=== PATIENT | female | born 1945 | race Caucasian/White ===

== ENCOUNTER 2017-01-23 11:55 | Emergency (ER) | payer MEDICARE, OTHER ==
[~2017-01-23] VITALS: Ht 162.6 cm; Wt 63.5 kg
[2017-01-23] MEDS ORDERED: OXYBUTYNIN CHLO15 MG PO (12:35)
[2017-01-23] MEDS ORDERED: ZANAFLEX4 MG PO (12:36)
[2017-01-23] MEDS ORDERED: TOLTERODINE TART4 MG PO (12:36)
[2017-01-23] MEDS ORDERED: PANTOPRAZOLE SO40 MG PO (14:04)
--- NOTE | 2017-01-24 13:02 | EKG ---
[facility] [address] [facility] [place] [address] Signed Sinus tachycardia with premature atrial complexes Cannot rule out Anterior infarct , age undetermined Abnormal ECG No previous ECGs available Confirmed by NILA ZUNIGA MD ([id number]) on 01/24/2017 1:01:52 PM Electronically Signed By: NILA ZUNIGA MD 01/24/17 1302 PATIENT NAME: PAMELAMONIKA ONEIDA Electrocardiogram DATE OF : 47 PHYSICIAN: NILA ZUNIGA MD REPORT #: [id number] REPORT IS CONFIDENTIAL AND NOT TO BE RELEASED WITHOUT AUTHORIZATION
== END 2017-01-23 16:12 | disposition home or self-care (01) ==
LOC: ED 11:55
DX: R13.10 Dysphagia, unspecified (principal); R03.0 Elevated blood-pressure reading, without diagnosis of hypertension; R61 Generalized hyperhidrosis; R00.0 Tachycardia, unspecified; I49.1 Atrial premature depolarization; G35 Multiple sclerosis; Z79.899 Other long term (current) drug therapy
CPT/HCPCS: 71010; 80053; 83735; 84484; 85025; 85610; 85730; 93005; 93010; 96361; 96374; 96375; 99283; J1610; J2060; J2270; J2405; J7030

== ENCOUNTER 2017-01-24 11:57 | Inpatient (IN) | payer MEDICARE, OTHER ==
[~2017-01-24] VITALS: Ht 162.6 cm; Wt 64.2 kg
[~2017-01-24 11:57] MED LIST: OXYBUTYNIN CHLO15 MG PO; PANTOPRAZOLE SO40 MG PO; TOLTERODINE TART4 MG PO; ZANAFLEX4 MG PO
--- NOTE | 2017-01-24 16:55 | NUR ---
PATIENT ADMITTED TO MED SURG. PATIENT IS A 2 PERSON ASSIST TO COMMODE. PATIENT ENDORSES NEEDING TO VOID EVERY ONE HOUR AT HOME HER BASELINE. D5LR @ 75 ML/HOUR. PATIENT REPORTS NO PAIN IN THROAT AT THIS TIME, ONLY WHEN ATTEMPTING TO SWALLOW.
--- NOTE | 2017-01-24 17:59 | NUR ---
PATIENT CAME TO THE FLOOR AROUND 1630 FROM ER. PATIENT HAS NO COMPLAINTS OF PAIN. ELEVATED BP NOTED AND TRANSDERMAL NITRO WAS ADMINISTERED WITH NO CHANGE IN BP. ALL OTHER VITAL SIGNS STABLE. PATIENT HAS NOT EATEN SINCE WEDNESDAY AND HAS DENIED NUTRITION. NO COMPLAINTS OF NAUSEA OR VOMITING. INTENTIONAL ROUNDING DONE WITH PATIENT'S NEEDS MET.
--- NOTE | 2017-01-24 18:42 | NUR ---
PATIENT IS RESTING IN BED WATCHING TV. HAS NO NEEDS AT THIS TIME.
--- NOTE | 2017-01-24 20:45 | NUR ---
PT AWAKE AND VISITING WITH HER . KENDALL OFFERS NO COMPLAINTS, BUT PT AND STATED THAT SHE JUST NEEDS TO BE CHANGED, NOT PUT ON THE COMMODE SHE COULD SIT ON THE COMMODE FOR LONG TIME IT TAKES HER LONG TIME TO URINATE.
--- NOTE | 2017-01-24 21:30 | NUR ---
PT REFUSED THE OXYBUTIN MEDICATION, STATING THAT SINCE SHE IS GETTING IV FLUIDS, IT SEEMS POINTLESS TO TAKE THE MEDICATION. PT SLEEPS WITH HER SHOES PER CHOICE.
--- NOTE | 2017-01-24 22:57 | NUR ---
PATIENT DID ORAL CARE.
--- NOTE | 2017-01-24 23:41 | NUR ---
PT REQUESTED TIZANIDINE, STATES SHE HAS NO DISCOMFORT WHEN SWALLOWING WATER FOR HER PILL
--- NOTE | 2017-01-25 01:24 | NUR ---
PT WITH EYES CLOSED, RESP EVEN AND UNLABORED. IV INFUSING PER ORDER.
--- NOTE | 2017-01-25 06:36 | NUR ---
PT HAD NO COMPLAINTS THIS SHIFT. INCONT CARE PROVIDED EVERY 1-2 HOURS. IV CONTINUES INFUSING. PT HAS HAD NO COMPLAINTS OF PAIN WHEN SWALLOWING. STATES THE PAIN IS GONE.
--- NOTE | 2017-01-25 07:46 | NUR ---
pt lying in bed this morning. reports bladder pains. will continue to monitor today. no other complaints at this time. bedside report received from Alvina MAIN.
--- NOTE | 2017-01-25 07:50 | NUR ---
Patient sittng up in bed. hands and face washed. oral care done. talked to her about a bed bath after swollow study. call button in reach. no other needs at this time.
--- NOTE | 2017-01-25 10:09 | NUR ---
pt BP elevated. checked x2. MD aware. will recheck at 1100. pt reports pain in throat returning. called. Expecting new orders soon.
--- NOTE | 2017-01-25 11:30 | NUR ---
DR. huang with patient. Talked to nurse about assisting patient with a bed bath once her pain is in more controll.
[2017-01-25] MEDS ORDERED: OXYBUTYNIN CHLO10 MG PO (11:43)
[2017-01-25] MEDS ORDERED: NALTREXONE PO (11:48)
[2017-01-25] MEDS ORDERED: VITAMIN D1000 UNI1 PO (11:52)
[2017-01-25] MEDS ORDERED: ALENDRONATE SOD70 MG PO (11:55)
--- NOTE | 2017-01-25 12:03 | NUR ---
REVIEWED MEDICATION LIST WITH PATIENT AND . ADDED ALENDRONATE TO MEDICATION LIST PATIENT TAKES THIS WEEKLY, LAST DOSE WAS 01/17, DID NOT TAKE ON 01/24 BECAUSE OF ESOPHAGEAL PAIN.
--- NOTE | 2017-01-25 12:43 | NUR ---
patient with 100ml of emesis. spouse reports reduction in epigastric pain after vomiting.
--- NOTE | 2017-01-25 13:12 | NUR ---
PATIENT AND HAVE HAD BOUTS OF ANXIETY. HAS APPROACHED NURSES STATION MULTIPLE TIMES FOR VARIOUS CONCERNS. DR ZUNIGA AWARE. PT HAVING BOUTS OF NAUSEA.
--- NOTE | 2017-01-25 13:38 | NUR ---
PT OFF FLOOR WITH CARLA FROM IMAGINING IN PT BED AT [id number]
--- NOTE | 2017-01-25 17:16 | NUR ---
PT HAD EVENTFUL DAY. ESOPHAGEAL SPASMS CAME BACK THIS MORNING. NITRO PASTE AND NITRO SL X2 EACH. MORPHINE X2. CARDIZEM PO THIS AFTERNOON. UNABLE TO GET GOOD RESULT FROM ESOPHOGRAM. PLAN FOR LIAM CONSULT AND EGD TOMORROW. CAN BE VERY ANXIOUS AND APPROACH NURSES DESK MULTIPLE TIMES DURING STRESSFUL TIMES FOR PATIENTS NEEDS FOR RELIEF. 2PA FWW. PHYSICAL THERAPY ORDERED. INCONTINENT. CHANGE ATTEND FREQUENTLY.
--- NOTE | 2017-01-25 19:35 | NUR ---
PT CONT. TO C/O NAUSEA. ZOFRAN GIVEN EARLIER NOT MUCH RELIEF. PHENERGAN 12.5MG IV GIVEN SLOWLY. REPOSITIONED. AT BEDSIDE.
--- NOTE | 2017-01-25 20:11 | NUR ---
PT REPORTS NAUSEA IS MUCH BETTER. STATES SHE IS COMFORTABLE. RESTING QUIETLY WITH EYES CLOSED. CALL LIGHT IN EASY REACH.
--- NOTE | 2017-01-25 22:00 | NUR ---
WOKE AFTER NAP AND STATES SHE IS "FEELING" BETTER, DENIES ESOPHAGEL PAIN. NO NAUSEA, SAT UP FOR HS CARES, LINENS CHANGED . POSITIONED FOR COMFORT. WATCHING TV.
--- NOTE | 2017-01-26 01:53 | NUR ---
ALMA VICTORIA FOR [facility], REPOSITIONED FOR COMFORT. CALL LIGHT IN EASY REACH.
--- NOTE | 2017-01-26 05:07 | NUR ---
PT STATES SHE SLEPT WELL TONIGHT. NPO SINCE [place] FOR EGD TODAY. IVF PATENT. INC CARE Q 2HOURS. NO NAUSEA SINCE PHENERGAN AT BEGINNING OF SHIFT. NO ESOPHAGEAL SPASMS THIS SHIFT.
--- NOTE | 2017-01-26 07:34 | NUR ---
Bedside report received from Sarita MAIN. Pt sleeping at this time. Oxycodone seems to be managing pain better. Patient up to bathroom independently with FWW. Left ankle Dyer dressing in place. Dr Rodriguez in seeing patient now.
--- NOTE | 2017-01-26 08:15 | NUR ---
FULL BED BATH DONE WITH SORAYA,ORAL, AND SKIN CARE. LINENS CHANGED. SHAMPOO CAP FOR HAIR. NO OTHER NEEDS AT THIS TIME. POSITIONED PATIENT ON RIGHT SIDE.
[2017-01-26] MEDS ORDERED: VALIUM5 MG PO (09:12)
--- NOTE | 2017-01-26 09:24 | NUR ---
PT. IS RESTING IN BED SPEAKING WITH . MORNING MEDICATIONS GIVEN AND ASSESSMENT DONE. PATIENT HAS NO NEEDS AT THIS TIME.
--- NOTE | 2017-01-26 09:57 | NUR ---
PRE OP CHECKLIST VERIFIED DONE. PHYS. THER IN TO WORK IWHT PT. IN ROOM.
--- NOTE | 2017-01-26 10:00 | NUR ---
PHYSICAL THERAPY IN TO ASSESS WALKING FUNCTION OF PT. PT. REQUIRES SIGNIFICANT ASSISTANCE STANDING AND WALKING. DEPEND CHANGED AFTER PT. WAS PUT BACK IN BED AND HAS NO OTHER NEEDS AT THIS TIME.
--- NOTE | 2017-01-26 11:12 | NUR ---
PT OFF FLOOR WITH RN KRUPA FROM SURGERY FOR EGD.
--- NOTE | 2017-01-26 11:46 | NUR ---
01/26/17 1146 Tanja Vaughan PT HAS AN IV IN RIGHT WRIST, CDI AND WLN ON ARRIVAL TO PACU
--- NOTE | 2017-01-26 12:08 | NUR ---
PATIENT BACK TO FLOOR FROM DAY SURGERY. RECEIVED REPORT FROM TERESA. PATIENT DENIES PAIN OR NAUSEA.
--- NOTE | 2017-01-26 13:02 | NUR ---
PATIENT IS RESTING IN BED WATCHING TV. UPDATED PATIENT ON PLAN OF CARE AND SHE WAS AGREABLE. PATIENT HAS NO NEEDS AT THIS TIME.
--- NOTE | 2017-01-26 13:44 | NUR ---
PATIENT SITTING UP IN BED. TURNED ONTO LEFT SIDE. WAITING ON A CLEAR LIQ TRAY. CALL BUTTON IN REACH. FRESH WATER GIVEN. NO OTHER NEEDS AT THIS TIME.
--- NOTE | 2017-01-26 14:09 | NUR ---
PATIENT IS RESTING IN BED WATCHING TV. DINNER AT BEDSIDE. MAALOX ADMINISTERED. PATIENT HAS NO NEEDS AT THIS TIME.
--- NOTE | 2017-01-26 16:00 | NUR ---
PATIENT IS RESTING IN BED WATCHING TV. PATIENT HAS NO NEEDS AT THIS TIME.
--- NOTE | 2017-01-26 16:20 | CONS ---
[facility] [address] [place], [place] [address] Signed DATE OF SERVICE: 01/25/2017 REFERRING PHYSICIAN: Dr. Aspen Porter CHIEF COMPLAINT: Painful swallowing. HISTORY OF PRESENT ILLNESS: Monika is a 71-year-old female with a long history of multiple sclerosis. Both her parents had it and all six of the children have it. She lives with her at home and she is able to stand and take small steps. She can sit on the toilet, but she cannot stand long enough to take a shower and so forth. Her MS doctor is Dr. Bunny Stoll in [place], [place] . She has been doing generally fine except the last couple of weeks, she has had painful swallowing. She eats whatever her cooks and she is able to chew the food and swallow, but it has been painful. She came into the emergency room, was given some glucagon, seemed to be better, and was all o wed to go home, but with resumed eating, the pain came back, so she returned to the hospital and was admitted to the Internal Medicine Service. They attempted to do a barium swallow yesterday, which was difficult because she is not able to stay under sit upright for any length of time and it was not particularly helpful. There is some concern that she does not swallow well on the barium swallow. The esophagus is said to be a little patulous, no peristalsis. They thought the distal third of the esophagus was a bit corkscrewed and it did not seem like the barium went through the GE junction. However, the distal esophagus was very difficult to evaluate, and once again, the patient complained of this chest pain, which has been present at least 2 weeks and so th e procedure had to be aborted. Consequently, I was asked to see her general surgeon manager distribution for consideration of upper endoscopy. PAST MEDICAL HISTORY: Multiple sclerosis and urinary urgency. PAST SURGICAL HISTORY: Right ankle surgery in 2005 with metal remaining. Left lower extremity varicose vein stripping. SOCIAL HISTORY: She does not smoke or drink. She is and has [address] Hayes Hendrickson is her primary care provider. Dr. Bunny Stoll is her MS doctor in [place], [place]. Her is Dario at [phone]. They live together at her home. She is able to stand and take small steps and sit on the toilet. Of course, she cannot drive. They prefer the [facility]. FAMILY HISTORY: Mom, dad, and all her siblings have multiple sclerosis. REVIEW OF SYSTEMS: We reviewed 10 systems and most of what I got from the electronic health records, but Electronically Signed By: ALLEGRA WHEELER MD 01/26/17 5820 PATIENT NAME: MONIKA SANTIAGORAINE CONSULTATION DATE OF : 47 PHYSICIAN: ALLEGRA WHEELER MD REPORT #: [id number] REPORT IS CONFIDENTIAL AND NOT TO BE RELEASED WITHOUT AUTHORIZATION [address] [address] Signed also from Monika. Nothing new to add. ALLERGIES: None. MEDICATIONS: Ocrelizumab, oxybutynin, tizanidine, tolterodine, and Protonix. PHYSICAL EXAMINATION: VITAL SIGNS: Blood pressure is 143/71, heart rate , respiratory rate 18, temperature is 98.3, and she is 98% on room air. She is 5 feet 4 inches, weight 76 kg. GENERAL: Monika is a 71-year-old female who generally appears her stated age. It is clear in interacting with her but she has MS. She is lying supine in her hospital bed. However, she is very bright and answers appropriately. LUNGS: Clear to auscultation. HEART: Regular rate and rhythm. ABDOMEN: Soft, flat, and nontender. LABORATORY DATA: Her white blood count 11.3, hemoglobin 13, neutrophils 71, and platelets 297. BUN 7, creatinine 0.7, albumin 4.1, and INR 0.9. RADIOGRAPHIC STUDIES: A chest x-ray done was unremarkable. The barium swallow showed possible corkscrewing in the distal esophagus without peristalsis. ASSESSMENT AND PLAN: Monika is a 71-year-old female who certainly has multiple scleroses now with what looks like odynophagia. However, she could have some dysphagia as well, though she has denied that up until 2 weeks ago. At this point, I have been asked to do her upper endoscopy and we can certainly do that later today or possibly tomorrow. We will need an anesthesia provider to help us because of her significant multiple sclerosis and airway control. In the end, I did introduce to h e r the concept of a feeding tube that may or may not be necessary at some point, either now or in the future. She has already been through a colonoscopy in the past and so she is familiar with endoscopy. We did review that together and she understands the risks and benefits and would like to proceed. We will make those arrangements and go from there. MD STEVEN Dickerson/Johnnie Electronically Signed By: ALLEGRA WHEELER MD 01/26/17 1620 PATIENT NAME: MONIKA SANTIAGO CONSULTATION DATE OF : 47 PHYSICIAN: ALLEGRA WHEELER MD REPORT #: [id number] REPORT IS CONFIDENTIAL AND NOT TO BE RELEASED WITHOUT AUTHORIZATION [address] [address] Signed /[id number] cc: Hayes Wheeler MD Electronically Signed By: ALLEGRA WHEELER MD 01/26/17 1620 PATIENT NAME: MONIKA SANTIAGO CONSULTATION DATE OF : 47 PHYSICIAN: ALLEGRA WHEELER MD REPORT #: [id number] REPORT IS CONFIDENTIAL AND NOT TO BE RELEASED WITHOUT AUTHORIZATION
--- NOTE | 2017-01-26 16:20 | OR ---
[facility] [address] [place], [place] [address] Signed DATE OF PROCEDURE: 01/26/17 PREOPERATIVE DIAGNOSES Distal odynophagia. Multiple sclerosis. POSTOPERATIVE DIAGNOSES Moderate sized type 1 hiatal hernia. Severe distal esophagitis. PROCEDURES EGD with CLOtest and biopsies of the antrum and GE junction. ESTIMATED BLOOD LOSS: Minimal. INDICATIONS Monika is a 71-year-old female who unfortunately developed multiple sclerosis in her late 40s. Both her parents and all her siblings have multiple sclerosis at this point. She can stand and take small steps, but otherwise is in bed. She said she is able to sit on the toilet if necessary. In the last couple of weeks, she has had severe distal odynophagia. She has been on Protonix at home. She came to emergency room, seemed to be okay with this sense of fullness in her esophagus, but came back the next day because the symptoms persisted. She was admitted to the Internal Medicine Service. I was asked to see her as a general surgeon cyber incident responder for consideration of upper endoscopy. In the meantime, she had chest x-ray done which was unremarkable. She had a barium swallow performed with just 4 small sips of the barium and it looked like there might be some corkscrewing to the distal esophagus. She did not seem to have much of anything as far as peristalsis. The little bit of contrast kind of collected down around the GE junction. There was question whether or not she had some corkscrewing in the distal esophagus. Given all that, I was asked to see her for upper endoscopy. I met with Mnoika here in the hospital and we discussed upper endoscopy in detail. She has had 2 prior colonoscopies, so she is familiar with endoscopy. She understands there is risk including but not limited to gas bloating, crampy abdominal pain, bleeding, perforation requiring surgery and missed diagnosis. Also because of her significant multiple sclerosis and the need to control her airway, we asked that an anesthesia provider help us with increased monitoring and sedation with propofol. She had expressed understanding and wished to proceed. DESCRIPTION OF PROCEDURE Monika was taken into our endoscopy suite and placed in a supine semi-recumbent position. She was given IV sedation with Propofol per our nurse spectroscopist. She said every morning around 10:00 am she gets a lot of phlegm and sputum and she spits it up in a Electronically Signed By: ALLEGRA WHEELER MD 01/26/17 1620 PATIENT NAME: MONIKA SANTIAGO OPERATIVE REPORT DATE OF : 47 PHYSICIAN: ALLEGRA WHELEER MD REPORT #: [id number] REPORT IS CONFIDENTIAL AND NOT TO BE RELEASED WITHOUT AUTHORIZATION [facility] [address] [place], [place] [address] Signed bag. We used the suction to help clear that from her posterior oropharynx. A bite block was utilized. The adult gastroscope was introduced and advanced under direct visualization of camera out into the stomach. It took me a few minutes to get through the distal antrum into the pyloric channel out of the third portion of the duodenum. The duodenum and pyloric channel were unremarkable. The antrum was not particularly concerning. We went ahead and took a biopsy of the antrum for pathologic review as well as CLOtest. She had quite a bit of tenacious sputum in the distal half of the stomach and upon retroflexion of scope, we can see bile stained tenacious sputum in the fundus of the stomach. It took a few minutes to suction that out as well. We saw no obvious pathology on the incisura, body and fundus of the stomach. However, we can see that she has a moderate sized type 1 hiatal hernia. We had taken pictures throughout for photodocumentation. We then made our way back up through the hiatal hernia and just above that at the GE junction and in the distal esophagus, she has very significant inflammatory changes in this area with very friable tissue and bleeding. We took 4 circumferential biopsies for pathologic review. As always, it is difficult to know if there is an underlying adenocarcinoma and again the gastroscope passed through nicely, but it is hard to know relative to a stricture. This went up several centimeters into the distal esophagus and by the time we got to the middle and upper esophagus, it disappeared. We suctioned out the gas as well as the saliva in her posterior oropharynx and we removed the gastroscope at that point. Overall, she tolerated procedure quite well. RECOMMENDATIONS Monika is going to be returned to her room on the Internal Medicine Service. We will put her on a full liquid diet along with her Prilosec b.i.d. She is welcome to have some pain medication as well. Would like to get this under control and consider a repeat barium swallow or endoscopy in the weeks ahead. MD STEVEN Dickerson/Johnnie /[id number] cc: Hayes Hendrickson MD Electronically Signed By: ALLEGRA WHEELER MD 01/26/17 1620 PATIENT NAME: MONIKA SANTIAGO OPERATIVE REPORT DATE OF : 47 PHYSICIAN: ALLEGRA WHEELER MD REPORT #: [id number] REPORT IS CONFIDENTIAL AND NOT TO BE RELEASED WITHOUT AUTHORIZATION [address] [place], [place] [address] Signed MD Edwardo Shetty Petty Electronically Signed By: ALLEGRA WHEELER MD 01/26/17 1620 PATIENT NAME: MONIKA SANTIAGO ONEIDA OPERATIVE REPORT DATE OF : 47 PHYSICIAN: ALLEGRA WHEELER MD REPORT #: [id number] REPORT IS CONFIDENTIAL AND NOT TO BE RELEASED WITHOUT AUTHORIZATION
--- NOTE | 2017-01-26 18:10 | NUR ---
PATIENT HAS BEEN RESTING IN BED THROUGHOUT SHIFT WITH AT BEDSIDE. SHE HAD AN EGD TODAY WITH DR. WHEELER (SEE OPERATIVE NOTE). VITALS STABLE THROUGHOUT SHIFT. PATIENT HAD AN EPISODE OF THROAT PAIN ASSOCIATED WITH ESOPHAGEAL SPASMS. MORPHINE WAS ADMINISTERED WITH NO RELIEF. PATIENT IS NOW TAKING MAALOX FOR ESOPHAGEAL PAIN. NO CHANGES FROM BEGINNING OF SHIFT ASSESSMENT. INTENTIONAL ROUNDING DONE WITH ALL PATIENT'S NEEDS MET.
--- NOTE | 2017-01-26 20:12 | NUR ---
PT IS RESTING COMFORTABLY ON BED WATCHING TV PROGRAM WITH , STATES SHE ENJOYED HER DINNER AND IS NOT HAVING ANY NAUSEA OR PAIN. DENIES ANY NEEDS ATHIS TIME. CALL LIGHT IN EASY REACH.
--- NOTE | 2017-01-26 21:24 | NUR ---
PT WATCHING TV. VITAL SIGNS COMPLETED. PT LEFT NEAR 2030 TONIGHT.
--- NOTE | 2017-01-27 00:30 | NUR ---
INC OF URINE, GOOD SKIN CARE, DENIES ANY DISCOMFORT OR NAUSEA.
--- NOTE | 2017-01-27 06:57 | NUR ---
PT SLEPT WELL TONIGHT, NO ESOPHAGEAL PAIN, INC CARE AND POSITIONING. IVF PATENT.
--- NOTE | 2017-01-27 07:00 | NUR ---
RECEIVED REPORT FROM ETELVINA DELA CRUZ. PATIENT IS RESTING IN BED AT THIS TIME.
--- NOTE | 2017-01-27 08:20 | NUR ---
PATIENT REQUESTED MAALOX BEFORE HER MEAL PROPHYLACTICALLY FOR ESOPHAGEAL SPASMS. AFTER ADMINISTERING THE MAALOX, THE PATIENT BEGAN TO HAVE 10/10 PAIN BECAUSE OF AN ESOPHAGEAL SPASM. DR. ZUNIGA WAS CALLED AND ORDERED A GI COCKTAIL. PATIENT RE-POSITIONED WITH RN PATRICIA FOR COMFORT.
--- NOTE | 2017-01-27 09:06 | NUR ---
PATIENT STATES THAT HER ESOPHAGEAL PAIN IS 2/10 AFTER GI COCKTAIL ADMINISTRATION. SHE STATES THAT SHE IS NOW COLD. TEMPORAL TEMP OF 98.2. GAVE PATIENT WARM BLANKET.
--- NOTE | 2017-01-27 09:49 | NUR ---
gave patient bed bath. skin and oral care done.
--- NOTE | 2017-01-27 11:27 | NUR ---
PATIENT TAKEN TO BATHROOM WITH HELP FROM PHYSICAL THERAPY.
--- NOTE | 2017-01-27 11:45 | NUR ---
PATIENT IS STILL IN BATHROOM.
--- NOTE | 2017-01-27 12:18 | NUR ---
PATIENT IS HAVING AN ESOPHAGEAL SPASM AFTER ATTEMPTING TO EAT. ORDER PUT IN FOR ANOTHER GI COCKTAIL.
--- NOTE | 2017-01-27 12:27 | NUR ---
PATIENT STATED THAT GI COCKTAIL GIVES HER RELIEF FROM ESOPHAGEAL SPASMS.
--- NOTE | 2017-01-27 12:30 | NUR ---
PATIENT SITTING UP IN CHAIR EATING LUNCH. NO NEEDS AT THIS TIME. CALL BUTTON IN REACH. LINENS CHANGED.
--- NOTE | 2017-01-27 12:49 | NUR ---
bed bath done. lisa and hernandez care done. clean linens. shampoo cap. bi-pap on. patient resting in bed with eyes closed. call button in reach.
--- NOTE | 2017-01-27 13:17 | NUR ---
AZAM WAS PACING THE JAIMES. STOPPED AND VISITED A MOMENT WITH HIM. HE BEGAN TO TELL ME THAT DR ZUNIGA HAS DISCOVERED WHAT IS CAUSING HER PAINFUL PROBLEMS. SPASMS COME IN MORNING, MAYBE AFTER STOMACH ACID BUILDS UP. HE HOPES SHE CAN STAY LONGER-TO SEE IF SYMPTOMS CAN DIMINISH AND FURTHER TREATMENT CAN HAPPEN. WILL CONTINUE TO FOLLOW
--- NOTE | 2017-01-27 13:23 | NUR ---
PATIENT IS SITTING IN CHAIR WATCHING TV. SHE DENIES ANY NEEDS AT THIS TIME.
--- NOTE | 2017-01-27 15:20 | NUR ---
PATIENT IS SITTING IN CHAIR WATCHING TV. HAS NO NEEDS AT THIS TIME.
--- NOTE | 2017-01-27 17:05 | NUR ---
GI COCKTAIL GIVEN PROPHYLACTICALLY BEFORE DINNER. PATIENT DOES NOT HAVE ANY NEEDS AT THIS TIME.
--- NOTE | 2017-01-27 18:04 | NUR ---
PATIENT HAS BEEN IN BED AND WHEELCHAIR THROUGHOUT DAY. AFTER ADMINISTERING MAALOX IN THE AM, THE PATIENT HAD AN ESOPHAGEAL SPASM. DR. ZUNIGA WAS NOTIFIED AND HE ORDERED A GI COCKTAIL PRN. VITAL SIGNS STABLE. THE PATIENT HAD TWO TOTAL ESOPHAGEAL SPASMS TODAY WITH NO OTHER COMPLAINTS OF PAIN. NO CHANGES FROM THE BEGINNING OF SHIFT ASSESSMENT. INTENTIONAL ROUNDING DONE WITH ALL PATIENT'S NEEDS MET.
--- NOTE | 2017-01-27 20:00 | NUR ---
RECEIVED REPORT AT 1900. FOUND PT IN GOOD SPIRITS WITH AT BEDSIDE.
--- NOTE | 2017-01-27 22:00 | NUR ---
ALL LOBES WERE CLEAR. EDEMA IN BOTH LOWER EXTREMETIES IS +2. DORSALIS PEDIS IS +1. ALL LOBES ARE CLEAR. PT DENIES ANY ESOPHAGEAL PAIN AT THIS TIME. V/S ARE WDL.
--- NOTE | 2017-01-28 00:46 | NUR ---
PT IS SLEEPING AT THIS TIME.
--- NOTE | 2017-01-28 03:52 | NUR ---
PT IS SLEEPING AT THIS TIME.
--- NOTE | 2017-01-28 05:02 | NUR ---
PT HAS BEEN SLEEPING MOST OF THE NIGHT. V/S ARE WDL. PT HAS NOT HAD ANY ESOPHAGEAL SPASM THIS SHIFT SO FAR. NO NEW ISSUES NOTED THIS SHIFT SO FAR.
--- NOTE | 2017-01-28 07:13 | NUR ---
REPORT RECEIVED FROM ETELVINA JONES. PT HAD GOOD NIGHT, NO ESO SPASMS. SLEPT MOST OF SHIFT. AWAKE THIS MORNING AND DENIES PAIN. READY TO TRY EATING BREAKFAST.
[2017-01-28] MEDS ORDERED: DILTIAZEM 24HR240 M3 PO (08:15)
[2017-01-28] MEDS ORDERED: LANSOPRAZOLE30 MG PO (08:18)
[2017-01-28] MEDS ORDERED: MAG-AL LIQUID30 ML PO (08:20)
--- NOTE | 2017-01-28 10:47 | NUR ---
PT USED THE BATHROOM AND IS NOW DRESSED AND SITTING UP IN PERSONAL WHEEL CHAIR WAITING TO BE DISCHARGED TO HOME
--- NOTE | 2017-01-28 10:53 | NUR ---
REMOVED PT IV WNL. WENT OVER EDUCATION. ANSWERED PT AND HUSBANDS QUESTIONS. PT VERBALIZED UNDERSTANDING. CALLED PHARMACY TO BRING NEW SCRIPT OF GI COCKTAIL. CALLED FOR CARE RIDE AT 1115.
--- NOTE | 2017-01-29 13:41 | NUR ---
PTS MATHEUS CALLED ASKING IF THERE WOULD BE ANYTHING THAT I COULD HELP HIM WITH FOR THE FUTURE HE STATED SHE GETS WEAKER IT IS HARDER FOR HIM TO CARE FOR HER. I DID TALK WITH HIM ABOUT GETTING HOME HEALTH INVOLVED FOR RN, PT AND OT FOR GEN STRENGTHENING SHE BECAME WEAKER WHILE SHE WAS HERE. WE TALKED ABOUT THIS BEING NORMAL FOR ANYONE BUT WITH THE MS IT IS A LITTLE MORE PROMONENT. HE LIKED THE IDEA OF HAVING HOME HEALTH COME IN. I TALKED THIS OVER WITH DR BEATTY AND HE AGREED AND VERBAL ORDER WAS GIVEN. ORDER AND CHART NOTES INCLUDING FACESHEET, ER NOTES, H AND P, PROG NOTES, LABS, AND PT EVAL WERE SENT TO [facility]. I ALSO TALKED WITH JUAN IN ABOUT THIS. PT HAD ALSO ASKED ABOUT A LIFT AT HOME AND I SUGGESTED THAT HE TALK WITH DR VELÁZQUEZ REGARDING THIS WHEN THEY SEE HIM ON WEDNESDAY, WE ALSO DISCUSSED THE NEED FOR MORE CAREGIVERS TIME GOES ON AND GAVE HIM SOME RESOURCES FOR THIS ALSO.
== END 2017-01-28 11:23 | disposition home or self-care (01) | DRG 392 ==
LOC: ED 11:57 → MS 11:59
PROVIDERS: Colon & Rectal Surgery; ADMIT Internal Medicine
PROC: 0DB48ZX Excision of Esophagogastric Junction, Via Natural or Artificial Opening Endoscopic, Diagnostic (ICD-10-PCS; 2017-01-26)
PROC: 0DB68ZX Excision of Stomach, Via Natural or Artificial Opening Endoscopic, Diagnostic (ICD-10-PCS; principal; 2017-01-26 12:30)
DX: K22.2 Esophageal obstruction (principal); K20.9 Esophagitis, unspecified; K44.9 Diaphragmatic hernia without obstruction or gangrene; G35 Multiple sclerosis; R39.15 Urgency of urination; E86.0 Dehydration
CPT/HCPCS: 00740; 36415; 74230; 80069; 83735; 86677; 88305; 88312; 97162; G8978; G8979; J1610; J2250; J2270; J2405; J2550; J2704; J3010; J3480; J7120

== ENCOUNTER 2017-04-26 12:00 | Day surgery (SDC) | payer MEDICARE, OTHER ==
[~2017-04-26] VITALS: Ht 162.6 cm; Wt 64.2 kg
[~2017-04-26 12:00] MED LIST changes: +ALENDRONATE SOD70 MG PO; +DILTIAZEM 24HR240 M3 PO; +LANSOPRAZOLE30 MG PO; +MAG-AL LIQUID30 ML PO; +NALTREXONE PO; +OXYBUTYNIN CHLO10 MG PO; +VALIUM5 MG PO; +VITAMIN D1000 UNI1 PO
[2017-04-26] MEDS ORDERED: ULTRAM50 MG PO (12:30)
[2017-04-26] MEDS ORDERED: DESMOPRESSIN A0.2 MG PO (12:31)
--- NOTE | 2017-04-26 14:39 | NUR ---
04/26/17 1438 Tanja Vaughan 1430 PT ARRIVED TO PACU, RESP EVEN AND UNLABORED. 1434 PT O2 SAT 100%, O2 REMOVED.
[2017-04-26] MEDS ORDERED: KEFLEX500 MG PO (15:30)
[2017-04-26] MEDS ORDERED: PERCOCET 5-3251 EACH PO (15:30)
--- NOTE | 2017-04-30 11:48 | OR ---
[facility] [address], [place] [address] Signed DATE OF OPERATION: 04/26/2017 SURGEON: Tawanda Rocha MD PREOPERATIVE DIAGNOSES: 1. Incomplete bladder emptying. 2. History of severe urinary frequency, urgency, and nocturia. POSTOPERATIVE DIAGNOSES: 1. Incomplete bladder emptying. 2. History of severe urinary frequency, urgency, and nocturia. NAMES OF PROCEDURES: 1. Diagnostic cystoscopy. 2. Insertion of suprapubic cystostomy tube. ANESTHESIA: LMA. COMPLICATIONS: None. SPECIMENS: None. DRAINS: A 16-Malay Native tip Hong catheter inserted as a cystostomy tube, connected to gravity drainage. INDICATIONS FOR PROCEDURE: Ms. Santiago is a very pleasant 71-year-old female who has a longstanding history of primary progressive multiple sclerosis. She recently presented to my clinic with complaints of increased urinary frequency, urgency, nocturia and difficulty voiding. She had been treated with multiple anticholinergic medications without success. She underwent a renal bladder ultrasound, which revealed a postvoid residual of 495 mL. After attempts at trying self intermittent catheterization, the patient has decided that she would like to have her hypotonic bladder managed with a chronic indwelling suprapubic catheter. She presents today to undergo insertion of her cystostomy tube. OPERATIVE FINDINGS: 1. On cystoscopy, there was no evidence of any suspicious masses, lesions, or stones within the bladder. There is a diffuse grade 1 to 2 bladder wall trabeculation throughout. Bilateral ureteral orifices are in their normal anatomic location. 2. The 16-Malay Native tip Hong catheter was then inserted via a trocar into the dome of the bladder under direct visualization without difficulty. I was able to visualize the balloon being inflated in the bladder and the balloon remained intact. A total of 15 Electronically Signed By: TAWANDA ROCHA MD 04/30/17 1148 PATIENT NAME: MONIKA SANTIAGO OPERATIVE REPORT DATE OF : 47 PHYSICIAN: TAWANDA ROCHA MD REPORT #: [id number] REPORT IS CONFIDENTIAL AND NOT TO BE RELEASED WITHOUT AUTHORIZATION [facility] [address], [place] [address] Signed mL was injected into the anchoring balloon. Repeat cystoscopy confirmed adequate placement of the suprapubic tube in good position. DESCRIPTION OF PROCEDURE: After informed consent was obtained, the patient was taken back to the operating room. She was transferred from the [facility] to operating room table, where LMA anesthesia was induced. She was placed in the partial dorsal lithotomy position and her genitalia were prepped and draped in standard sterile fashion. A permanent marker was used to lizzie an area approximately two fingerbreadths above the pubic symphysis. This area was marked in the middle of her abdomen. A rigid cystoscope using a 22-Malay sheath was inserted into the patient's bladder and a diagnostic cystoscopy was performed. Please see above findings. A spinal needle was inserted through the previous lizzie on the belly and into the dome of the bladder under direct visualization. The spinal needle was then removed and the trocar was placed in the same position and in the same trajectory. I was able to watch the trocar go in at a slow pace to avoid iatrogenic injury to any other part of the bladder. The trocar went in completely, and I was able to then pass the Hong catheter through the trocar into the patient's bladder. The trocar was removed, and the Hong balloon was filled with 15 mL of sterile saline. I plugged the catheter to keep the patient's bladder full and was able to appreciate that the suprapubic tube was in good position, and the balloon was intact. The suprapubic tube was then secured into position with a #0 silk. Some bacitracin was applied to the new tract along with a dressing and then the suprapubic tube was connected to gravity drainage. The procedure was then terminated. The patient tolerated the procedure well without any complication. She will now be transferred to the post anesthesia care unit in stable condition. DISPOSITION: The patient will be discharged to home today in stable condition. She and her were given detailed instructions on how to manage the suprapubic tube at home. She plans to go to [place], [place] in the next week or so, and we have already scheduled a 6-week suprapubic tube exchange at the local urologist there. Mr. Santiago was given the urologist information today. She will need to contact the clinic when she gets back in town from [place], at which time we can schedule another date and time for another q.6-week suprapubic tube exchange. Tawanda Rocha MD Electronically Signed By: TAWANDA ROCHA MD 04/30/17 1148 PATIENT NAME: MONIKA SANTIAGO OPERATIVE REPORT DATE OF : 47 PHYSICIAN: TAWANDA ROCHA MD REPORT #: [id number] REPORT IS CONFIDENTIAL AND NOT TO BE RELEASED WITHOUT AUTHORIZATION [address] [address] Signed [facility] /[id number] Electronically Signed By: TAWANDA ROCHA MD 04/30/17 1148 PATIENT NAME: MONIKA SANTIAGO OPERATIVE REPORT DATE OF : 47 PHYSICIAN: TAWANDA ROCHA MD REPORT #: [id number] REPORT IS CONFIDENTIAL AND NOT TO BE RELEASED WITHOUT AUTHORIZATION
== END 2017-04-26 16:10 | disposition home or self-care (01) ==
LOC: DS 12:00
PROVIDERS: Urology
PROC: 0T9B0ZZ Drainage of Bladder, Open Approach (ICD-10-PCS; principal; 2017-04-26 13:00)
DX: R33.9 Retention of urine, unspecified (principal); N32.81 Overactive bladder; G47.00 Insomnia, unspecified; Z98.890 Other specified postprocedural states; Z79.899 Other long term (current) drug therapy
CPT/HCPCS: 00910; J0696; J1100; J1885; J2250; J2405; J2704; J2765; J3010; J7120

== ENCOUNTER 2017-05-05 08:45 | Inpatient (IN) | payer MEDICARE, OTHER ==
[~2017-05-05] VITALS: Ht 162.6 cm; Wt 59.2 kg
--- OUTSIDE RECORDS SUMMARY | ~2017-05-05 | XMS | Clinical Summary ---
Demographics + + + | Address | [address] | | | [place] [address] | + + + | Home Phone | | + + + | Preferred Language | Unknown | + + + | Marital Status | | + + + | Synagogue Affiliation | Unknown | + + + | Race | White | + + + | Ethnic Group | Not or | + + + Author + + + | Author | [facility] | + + + | Organization | [facility] | + + + | Address | Unknown | + + + | Phone | Unavailable | + + + Support +------+ + + + +-------+ | Name | Relationship | Address | Phone | +------+ + + + +-------+ ECON | [address] | | [place] | [address] | +------+ + + + +-------+ Care Team Providers + +------+ + | Care Centrifugal Spinner Name | Role | Phone | + +------+ + PP | Unavailable | + +------+ + Source Comments [facility] is fully live on both [facility] and [facility] Allergies No Known Allergies Current Medications + + +-------+---------+------+------+-------+ | Prescription | Sig. | Disp. | Refills | Star | End | Statu | | | | | | t | Date | s | | | | | | Date | | | + + +-------+---------+------+------+-------+ | Tizanidine HCl 4 | take 1 tablet (4 mg) | | | | | Activ | | mg Oral Tablet | by oral route every | | | | | e | | | 8 hours as needed | | | | | | | | not to exceed 3 | | | | | | | | doses in 24 hours | | | | | | + + +-------+---------+------+------+-------+ | Desmopressin | take 1 tablet (0.2 | | | | | Activ | | Acetate 0.2 mg Oral | mg) by oral route 2 | | | | | e | | Tablet | times per day | | | | | | + + +-------+---------+------+------+-------+ | Oxybutynin | take 1 tablet (10 | | | | | Activ | | Chloride 10 mg Oral | mg) by oral route | | | | | e | | Tab,Sust Rel Osmotic | once daily | | | | | | | Push 24hr | | | | | | | + + +-------+---------+------+------+-------+ Active Problems + + + | Problem | Noted Date | + + + | MS (multiple sclerosis) (HCC) | | + + + + + | Overview: primary progressive | + + + +---+ | constipation | | + +---+ | Malignant neoplasm of skin | | + +---+ + + | Overview: ICD10 | + + + +---+ | Frequency of urination | | + +---+ Encounters +--------+ + + + + | Date | Type | Specialty | Care Team | Description | +--------+ + + + + | 05/05/ | Emergency | | | | | 2017 | | | | | +--------+ + + + + from Last 3 Months Social History + +-------+ +--------+------+ | Tobacco Use | Types | Packs/Day | Years | Date | | | | | Used | | + +-------+ +--------+------+ | Never Assessed | | | | | + +-------+ +--------+------+ + + + | Sex Assigned at | Date Recorded | | | | + + + | Not on file | | + + + Last Filed Vital Signs + +---------+ + | Vital Sign | Reading | Time Taken | + +---------+ + | Blood Pressure | 122/80 | 06/14/2007 9:48 AM PST | + +---------+ + | Pulse | 78 | 06/14/2007 9:48 AM PST | + +---------+ + | Temperature | - | - | + +---------+ + | Respiratory Rate | 16 | 06/14/2007 9:48 AM PST | + +---------+ + | Oxygen Saturation | - | - | + +---------+ + | Inhaled Oxygen | - | - | | Concentration | | | + +---------+ + | Weight | - | - | + +---------+ + | Height | - | - | + +---------+ + | Body Mass Index | - | - | + +---------+ + Plan of Treatment + + + + + | Health Maintenance | Due Date | Last Done | Comments | + + + + + | INFLUENZA VACCINE | | | | | (FLU SHOT) | 7 | | | + + + + + Results Not on filefrom Last 3 Months"
--- OUTSIDE RECORDS SUMMARY | ~2017-05-05 | XMS | Encounter Summary ---
Demographics + + + | Address | [address] | | | [place] [address] | + + + | Home Phone | | + + + | Preferred Language | Unknown | + + + | Marital Status | | + + + | Yazidi Affiliation | Unknown | + + + | Race | White | + + + | Ethnic Group | Not or | + + + Author + + + | Author | [facility] | + + + | Organization | [facility] | + + + | Address | Unknown | + + + | Phone | Unavailable | + + + Support +------+ + + + +-------+ | Name | Relationship | Address | Phone | +------+ + + + +-------+ ECON | [address] | | [place] | [address] | +------+ + + + +-------+ Care Team Providers + +------+ + | Care Slat Grader Name | Role | Phone | + +------+ + PCP | Unavailable | + +------+ + Reason for Visit +--------+ + | Reason | Comments | +--------+ + | Rash | | +--------+ + Encounter Details +--------+ + + + + | Date | Type | Department | Care Team | Description | +--------+ + + + + | 05/05/ | Emergency | [facility] Emergency | | | | 2016 | | Department [address] | | | | | [address] | | | | | | [facility] | | | | | | [place] [address] | | | | | | [phone] | | | +--------+ + + + [...] + + + as of this encounter Plan of Treatment Not on fileas of this encounter Visit Diagnoses Not on filein this encounter"
[~2017-05-05 08:45] MED LIST changes: +DESMOPRESSIN A0.2 MG PO; +KEFLEX500 MG PO; +PERCOCET 5-3251 EACH PO; +ULTRAM50 MG PO
[2017-05-05] MEDS ORDERED: METHYLPREDNISOLO4 MG PO (09:21)
[2017-05-05] MEDS ORDERED: OCREVUS300 MG/10 IV (11:18)
--- NOTE | 2017-05-05 16:05 | NUR ---
PATIENT TX TO ROOM 117 FROM THE ER, PATIENT 3 PERSON TX TO HER BED FROM THE STRETCHER. PATIENT IS ALERT AND ORIENTED AT THIS TIME BUT C/O PAIN ALL OVER FROM MOVEMENT 8/10. PATIENT GIVEN AN OXYCODONE PO AT THIS TIME AND IV FLUID STARTED. IS AT BEDSIDE AND PATIENT ORIENTED TO THE ROOM.
--- NOTE | 2017-05-05 16:45 | NUR ---
PT RESTING IN BED REPROTS PAIN MANAGEMENT IS ADEQUATE AT THIS TIME. IN TO ASSESS SUPRAPUBIC CATHETER PLACED 9 DAYS AGO. REPORTS THAT PLACEMENT SITE WNL.
--- NOTE | 2017-05-05 18:21 | NUR ---
PT SITTING UP EATING DINNER, REPORTS PAINFUL, 2ND 5MG TAB OF OXYCODONE ADMINISTERED. TYLENOL GIVEN NOW FOR TEMP 99.9. NO OTHER REQUESTS AT THIS TIME
--- NOTE | 2017-05-05 18:31 | NUR ---
PT ARRIVED TO ROOM 117 FROM E.D. AT 1530. SHE HAS REPORTED PAIN SEVERE ON ARRIVAL WAS GIVEN 5MG OXYCODONE PO PRN, THEN GIVEN A SECOND DOSE AFTER REPOSITIONING AND REMOVING SLING FROM UNDER PT. SHE REPORTS PAIN IS IMPROVING. SHE IS NOW EATING DINNER. SHE IS A TURN Q2 HOURS, SHE STILL NEEDS OPEN RASH CLEANS AND DRESSED AFTER DINNER. PT IS ALERT AND ORIENTED. HAS HEEL PROTECTORS ON HAS FLETCHER HOSE ON FROM HOME. SHE IS ON AIRBOURN AND CONTACT PRECAUTIONS.
--- NOTE | 2017-05-05 19:45 | NUR ---
FINISING UP REPORT FROM DAYSHIFT. ADAPTIC, ABD'S, KERLIX, AND SOME ELASTIC CLOTH PUT ON TO DRESS THE RIGHT SIDE, BACK, AXILLA, AND BREAST THAT OR COVERED IN YELLOW FLUID FILLED BLISTERS AND SOME SKIN SLUFFING.
--- NOTE | 2017-05-05 20:10 | NUR ---
PATIENT IN BED DOING WELL. DOES NOT NEED ANYTHING AT THIS TIME. WHITEBOARD UPDATED, NEW GREEN SHEET PUT ON DOOR, ROOM TIDIED.
--- NOTE | 2017-05-05 22:00 | NUR ---
PATIENT RESTING QUIETLY AFTER PAIN MEDICATIONS.STILL SITTING UP IN BED, BUT ASLEEP WITH REGULAR RESPIRATIONS.
--- NOTE | 2017-05-06 00:20 | NUR ---
PATIENT RESTING QUIETLY WHILE SITING UP IN BED.
--- NOTE | 2017-05-06 02:02 | NUR ---
PATIENT SAYS SHE IS DOING OK AND DOES NOT NEED ANYTHING FOR PAIN AT THIS TIME. PATIENT IS SITTING UP WATCHING TV IN BED.
--- NOTE | 2017-05-06 04:04 | NUR ---
PATIENT RESTING QUEITLY SITTING UP IN BED, EYES CLOSED, RESPIRATIONS EVEN AND REGULAR AT18/MIN.
--- NOTE | 2017-05-06 04:24 | NUR ---
NURSE IN ROOM
--- NOTE | 2017-05-06 04:56 | NUR ---
PATIENT JUST GOT SOME MORE PAIN MEDICATION FOR 3/10 PAIN ON THE RIGHT SIDE OF HER TORSO. PATIENT HAS SLEPT ON AND OFF THROUGH THE SHIFT. IV STILL PATENT AND RUNNING CONTINOUSLY. PATIENT'S DRESSING FROM THE BEGINING OF THE SHIFT IS STILL IN PLACE. SUPRAPUBIC CATHETER HAS BEEN DRAINING WELL AND PATIENT HAS BEEN TAKING IN FLUIDS WELL.
--- NOTE | 2017-05-06 05:01 | NUR ---
ASSISTED PATIENT WITH EATING [place]
--- NOTE | 2017-05-06 05:39 | NUR ---
JUST IN TALKING WITH THE PATIENT PAIN IMPROVING AFTER HER PAIN MEDICATION. PATIENT HAD A SLIGHT FEVER OF 100.0F AND WAS GIVEN 500MG OF TYLENOL PO WELL. JUST HUNG HER ANTIVIRAL IV PIGGYBACK WELL. PATIENT SAID SHE DID NOT NEED ANYTHING ELSE.
--- NOTE | 2017-05-06 06:23 | NUR ---
PATIENT SITTING UP QUIETLY WATCHING TV IN BED. PATIENT SAYS HER PAIN IS IN CONTROL RIGHT NOW, DRESSING STILL CDI FROM LOOKING AT THE OUTSIDE.
--- NOTE | 2017-05-06 06:45 | NUR ---
CALLED ABOUT A NEW FEVER OF 101.7F. ORDERS GIVEN TO GIVE AN EXTRA 500MG TYLENOL ON TOP OF THE 500MG TYLENOL I HAD GIVEN FOR THE 100.0F FEVER FROM AN HOUR EARLIER. NO OTHER ORDERS GIVEN.
--- NOTE | 2017-05-06 07:20 | NUR ---
pt resting in bed at this time. report received from Steve.
--- NOTE | 2017-05-06 09:48 | NUR ---
pts vitals take by student nurse.
--- NOTE | 2017-05-06 10:30 | NUR ---
PATIENT RESTING IN BED, DISCUSSED PATIENT SKIN. DSG INTACT, SOME DRAINAGE THROUGH ADAPTIC. PATIENT TEMP 100.0 PROVIDED PATIENT IS, INSTRUCTED TO USE. BP SOFT. NEW ORDER FOR LR BOLUS. NEW IV, 22G TO LEFT HAND.
--- NOTE | 2017-05-06 12:04 | NUR ---
PT COMPAINS OF INCREASED PAIN AND NAUSEA SO GAVE HER ANOTHER DOSE OF OXYCODONE. AND GAVE HER DOSE OF ODT OF ZOFRAN.
--- NOTE | 2017-05-06 12:56 | NUR ---
MET DINA RUSSELL'S PAT IN [facility]. HE IS DISCOURAGED-REALLY OPENED UP TO ME ABOUT HER SHINGLES AND THE PLANS THEY HAD TO LEAVE FOR ARIZ. AZAM IS VERY FAITHFUL, AND IS CHANGING HIS LIFE PLANS TO CARE FOR HIS . HAD PRAYER WITH AZAM, WILL FOLLOW NEEDED
--- NOTE | 2017-05-06 14:29 | NUR ---
pts vitals taken by student nurse.
--- NOTE | 2017-05-06 15:09 | NUR ---
REPOSITIONED PATIENT TO CENTER OF BED. ACYCLOVIR INFUSING NOW. OXYCODONE 10MG PO GIVEN PER REQUEST FOR PAIN IN BACK. PT REFUSED BED BATH.
--- NOTE | 2017-05-06 15:26 | NUR ---
WATCHED THE PT GET THEIR MIDLINE INSERTED. PROCEDURE WENT WELL. PT TOLERATED PROCEDURE WELL. PT COMPLANED OF INCREASING PAIN ON BACK. RN CAME IN WITH OXYCODONE FOR HER AND HER ACYCLOVIR. REPOSITIONED THE PATINET IN BED. PEDAL PULSES WERE STONG BILATERALLY. LOWERED PT BED AND MADE SURE SHE HAD ACCESS TO HER CALL LIGHT. PT DIDNT NEED ANYTHING WHEN LEFT THE ROOM.
--- NOTE | 2017-05-06 15:53 | NUR ---
PT REPORTED THE PATIENT LOOKED "FLUSHED". RN ASSESSED PATIENT. TEMP 100.4. TYLENOL GIVEN TO PATIENT FOR TEMPERATURE AND HOSPITALIST NOTIFIED.
--- NOTE | 2017-05-06 17:01 | NUR ---
TEMP 100.6. HOSPITALIST NOTIFIED.
--- NOTE | 2017-05-06 17:54 | NUR ---
Checked pt temperature after 45 minutes of taking tylenol. Temp had not decreased so gave advil. Changed dressing on front and back. Repositioned pt and placed two pillows under her hips. Took vitals and took note of input and output. RN ordred dinner for pt. Pts call light was in reach. Pt was content at the time when left.
--- NOTE | 2017-05-06 18:08 | NUR ---
CONTACT AND AIRBORNE PRECAUTIONS. MIDLINE XENIA S/L. LH IV IVF @ 125. ACYCLOVIR. TYLENOL AND IBUPROFEN FOR FEVER. CALL IF HER URINE OUTPUT IS <200ML/4HR. SUPRAPUBIC CATHETER. DRESSING CHANGED ON CHEST AND BACK TONIGHT. ABD, ADAPTIC AND "UNDERWEAR" WRAP. OPEN SORES ON CHEST AND BACK. REGULAR DIET. HX MULTIPLE SCLEROSIS. PAINFUL TO MOVE. FLOATING ON PILLOWS NOW. NEED TO REPOSITION OFTEN. WORKING WITH PHYSICAL THERAPY.
--- NOTE | 2017-05-06 19:37 | NUR ---
RECIEVED REPORT FROM DAY SHIFT NURSE. PATIENT RESTING IN BED. SPOUSE AT BEDSIDE. PATIENT DENIES NEEDS AT THIS TIME. CALL LIGHT IN REACH.
--- NOTE | 2017-05-06 21:30 | NUR ---
PT C/O PAIN IN HER BACK-ADMNIISTERED OXYCODONE. DRESSINGS TO CHEST AND BACK ARE INTACT, MINIMAL SHADOWING, ADAPTIC INTACT UNDER ABD PADS. PT HAS NOTICED NEW VESICLES APPEARING ON HER LEGS. PT STATES SHE WOULD LIKE TO WAIT TO BE REPOSITIONED DUE TO HER CURRENT PAIN LEVEL. DENIES FURTHER NEEDS. PT DID NOT EAT VERY MUCH FOR DINNER.
--- NOTE | 2017-05-06 22:42 | NUR ---
ATTEMPTED TO REPOSITION PATIENT. PATIENT STATES SHE HAS NOT BEEN ABLE TO LAY ON HER SIDE FOR YEARS, SHE IS ONLY ABLE TO LAY ON HER BACK. MOVED SOME PILLOWS AROUND IN HER BED.
--- NOTE | 2017-05-07 00:28 | NUR ---
MORTGAGE LOAN OFFICER ORIGINATOR IN ROOM WITH PATIENT. ASSISTING WITH ORAL CARE. WARM BLANKETS APPLIED.
--- NOTE | 2017-05-07 01:33 | NUR ---
PT RESTING IN BED. STATES HER PAIN IS AT A 9/10 ON HER BACK AND IN HER MOUTH. ASSESSED HER MOUTH, WHITE PATCH NOTED ON L SIDE UNDER TOUNGE. REPOSITIONED PILLOWS AROUND PATIENT, REMOVED PILLOWS UNDER LEGS. PT STATES SHE FEELS BETTER WITH REPOSITIONING. PAIN MEDICATION ADMINISTERED WELL.
--- NOTE | 2017-05-07 02:36 | NUR ---
PATIENT SLEEPING IN BED. IVF INFUSING WITHOUT DIFFICULTY. CALL LIGHT IN REACH.
--- NOTE | 2017-05-07 04:45 | NUR ---
REPOSITIONED PT ON L SIDE. PT IN A LOT OF PAIN. VS OBTAINED. ADMINISTERED ADVIL FOR 99.6 TEMP. VALIUM ADMINISTERED FOR RESTLESSNESS. OBTAINED ORDER FROM MD FOR IV MORPHINE. CALL VENTURA IN REACH.
--- NOTE | 2017-05-07 05:52 | NUR ---
OBTAINED ORDER THIS MORNING FOR IV MORPHINE FOR BREAKTHROUGH PAIN. PT REQUESTING FOR PAIN MEDICATION 3 HOURS AFTER OXYCODONE GIVEN. WHITE PATCH NOTED IN MOUTH, PT MOSTLY C/O PAIN IN BACK AND MOUTH. TODAY IS DAY 4 WITH NO BM. LABS DRAWN THROUGH MIDLINE.
--- NOTE | 2017-05-07 06:31 | NUR ---
PT STATES HER PAIN LEVEL IS STILL AT AN 8/10, SHE SAYS NOW HER PAIN IS IN HER THROAT AND BACK. PT STATES THE PAIN IS FROM THE SORES. SHE HAD A HARD TIME DESCRIBING WHAT HER PAIN FELT LIKE. OXYCODONE ADMINISTERED. OFFERED TO REPOSITON PT. HYDRATION OFFERED. DENIES FURTHER NEEDS. CALL LIGHT IN REACH.
--- NOTE | 2017-05-07 07:30 | NUR ---
REPORT HANDOFF WITH NIGHT NURSE. PATIENT RESTING IN BED APPEARS CALM. NO COMPLAINTS OF PAIN AT THIS TIME. DISCUSSED POC FOR DAY, NOTED HERPES AROUND MOUTH HEALING. GOAL IS TO GET UP IN RECLINER FOR BREAKFAST.
--- NOTE | 2017-05-07 08:00 | NUR ---
PATIENT IN BED DOING WELL. REPOSITIONED TO RIGHT SIDE SHE WAS UNCOMFORTABLE, SCOOTED UP IN BED WELL. WHITEBOARD UPDATED, ROOM TIDIED.
--- NOTE | 2017-05-07 09:00 | NUR ---
PATIENT SITTING UP IN BED, APPEARS TO BE TOLERATING HILL ROM AIR BED WELL. PROVIDED PATIENT WITH DSG CHANGE, ABD'S TO BACK SATURATED WITH PINKISH DRAINAGE, WOUND BEDS APPEAR RAW AND RED. PATIENT COMPLAINS OF PAIN 8/10 ON PAIN SCALE, ADMINISTERED 4MG IV MORPHINE. REPORTED FINDING TO DR. ZUNIGA.
--- NOTE | 2017-05-07 10:16 | NUR ---
AT 0800 ENTERED ROOM WITH RN AND PRINTING TABLE HAND. PT COMPAINED OF NAUSEA. GAVE ZOFRAN. MOVED PT IN A LAVERN LIFT TO RECLINER. PT STATED AN INCREASE IN PAIN. GAVE HEPA-FLUSH THROUGH MID-LINE THEN ADMINSTERED MORPHINE THROUGH MID-LINE. ASKED ABOUT NAUSEA LEVEL PT STATED IT DECREASED. ASKED PT IF SHE WANTED TO ORDER BREAKFAST. PT DIDNT WANT ANYTHING. THEN SHE STATED JELLO SOUNDED GOOD. PT DIDNT FINSIH CUP OF JELLO DUE TO UPSET STOMACH. PT COMPLAIN OF BEING UNCOMFORTABLE SITTING IN RECLINER, PUTTING EXTRA PRESSURE ON HER STOMACH AREA. GAVE PT FULL BED BATH WHILE SITTING IN RECLINER AND CHANGED HER GOWN. TOOK OFF SOCKS AND RN PUT IN AN ORDER FOR LOTION FOR FEET AND LOWER LEGS. PT CALLED HER TO BRING PERSONAL BELONGINGS FROM HOME. MOVED PT SOON POSSIBLE ONCE RN & PRINTING TABLE HAND CAME BACK INTO THE ROOM. MOVED PT TO BARIATRIC BED WITH LAVERN LIFT. RN AND I CHANGED ALL OF HER DRESSING ON HER BACK AND CHEST AREA. PT WAS UNCOMFORTABLE AND HAD AN INCREASE IN PAIN WHILE CHANGING DRESSING. TOOK OFF DRESSING OVER SUPRAPUBIC CATHETER TO ASSESS AREA. AFTER PT RESTS WILL GO BACK INTO ROOM WITH RN TO DO CATH CARE. WHEN LEFT THE ROOM PT WAS RESTING WITH NURSE CALL LIGHT IN REACH AND ALL BED RAILS UP.
--- NOTE | 2017-05-07 12:37 | NUR ---
AT 1115, [facility] ROOM TO FOLLOW UP ON TYLENOL AND MORPHINE. PT STATED HER PAIN INCREASED. GAVE OXYCODONE. NOTICED CONINUOUS IV BAG WAS EMPTY CHANGED TO A NEW BAG. NOTICED DOC PUT IN NEW ORDERS. ACKOWLEDGED THEM AND GAVE NEW ORDERS. PUT LOTION ON LOWER LEGS AND FEET. DOCTOR CAME IN WITH TWO MEDICAL STUDENTS TO EXAMINE PT. PT SAID SHE WAS UNCOMFORTABLE SO WE REPOSITIONED HER. PT STATED SHE WAS COLD GOT A WARM BLANKET. PT HAD CALL LIGHT IN REACH AND BED RAILS UP.
--- NOTE | 2017-05-07 12:54 | NUR ---
nursing students put a suppository in patient
--- NOTE | 2017-05-07 14:26 | NUR ---
GOT PATIENT [place]
--- NOTE | 2017-05-07 15:23 | NUR ---
PATIENT ATTEMPTED TO HAVE BM, SUPPOSITORY WAS ADMINISTERED BY CUSTOMER SOLUTIONS REPRESENTATIVE AND INSTRUCTOR. PATIENT STATES " I FEEL LIKE ITS COMING." BED PROGRAMMED TO TURN PATIENT FROM SIDE TO SIDE. PATIENT STATES " THIS BED HAS REALLY BEEN GREAT FOR ME". DSG INTACT. NOTED GOOD URINE OUTPUT. T-DRAIN SPONGE PLACED AT CATH SITE. MIDLINE INFUSING WELL. LUNG SOUNDS CLEAR. ADMINISTERED OXYCODONE FOR PAIN 5/10 ON PAIN SCALE.
--- NOTE | 2017-05-07 16:00 | NUR ---
PATIENT UP WITH PHYSICAL THERAPY, POSITIONED [facility] INTO SITTING POSITION. PATIENT THEN SAT FORWARD, DID NOT TOLERATE ACTIVITY WELL. PATIENT HAD COMPLAINTS OF NAUSEA TO START WITH, ADMINISTERED IV ZOFRAN AND ADMINISTERED 4MG IV MORPHINE FOR PAIN CONTROL. PATIENT NOW RESTING BAG WITH EMESIS BAG IN HAND. STATES " FEELS ALOT BETTER NOW THAT I AM STRETCHED OUT". ACTIVITY FOR 45MIN.
--- NOTE | 2017-05-07 17:27 | NUR ---
PATIENT HAVING EMESIS X2, ADMINISTERED ZOFRAN IV NO RELIEF. NOTIFIED . NEW ORDER FOR PHENERGAN IV 6.25MG TO 12.5 MG Q6HRS PRN.
--- NOTE | 2017-05-07 18:03 | NUR ---
ADMINISTERED 6.25 PHENERGAN IV, PATIENT NOW RESTING WITH EYES CLOSED.
--- NOTE | 2017-05-07 19:37 | NUR ---
SHIFT REPORT RECIEVED AT PATIENT BEDSIDE. PATIENT'S LEFT FOR THE NIGHT. HE VOICED CONCERN ABOUT THE PATIENT BEING CONFUSED MORE THAN NORMAL. UPON ASSESSMENT THE PATIENT IS AAOX3 AND STATED THAT SHE WAS "CONFUSED FOR A MIN" WHEN SHE WOKE UP FROM A NAP AND THOUGHT SHE WAS AT HOME. WILL CONTINUE TO MONITOR. PATIENT REPORTS NAUSEA IS IMPROVED AND IS ATTEMPTING TO EAT A SANDWICH. SHE REPORTS PAIN WITH SWALLOWING AND RELATES IT TO A SORE THROAT. CALL LIGHT IN REACH.
--- NOTE | 2017-05-07 21:00 | NUR ---
EVENING MEDS GIVEN PER ORDERS. PATIENT REPORTING 9/10 PAIN. PRN PAIN MEDS GIVEN PER ORDER. PATIENT IS AAOX3. SORES ON CHEST AND BACK ARE GOVERED WITH DRESSING AND MESH. SMALL SORES ARE SPREAD ACROSS MOST OF THE PATIENTS BODY, INCLUDING HER FACE, STOMACH, ARMS, AND LEGS. PATIENT IS SENSITIVE TO EVEN TOUCH. DISCUSSED FINISHING ASSESSMENT ONCE PAIN MEDICATION HAD AN OPPORTUNITY TO COME INTO EFFECT. PATIENT BEGAN TO FEEL AN INCREASE IN NAUSEA, PRN NAUSEA MEDS PROVIDED. PATIENT REPORTS AN INCREASED SORENESS IN HER MOUTH AND THROAT THAT IS IRRITATED BY SWOLLOWING FLUIDS. WILL DISCUSS THIS WITH HOSPITALIST. CALL LIGHT IN REACH. NO FURTHER NEEDS.
--- NOTE | 2017-05-07 22:16 | NUR ---
DISCUSSED PATIENTS COMPLAIN OF SORE MOUTH AND THROAT WITH HOSPITALIST. NEW ORDERS RECIEVED, VERIFIED USING READ BACK METHOD.
--- NOTE | 2017-05-07 22:39 | NUR ---
PATIENT REPORTS 5/10 PAIN AND FEELS THAT IT IS DECREASING. NO NAUSEA AT THIS TIME. PROVIDED PRN LOZENGE FOR SORE MOUTH AND THROAT. PATIENT'S CATH SITE IS RED BUT PATIENT DENIES PAIN. NO DRESSING IN PLACE. CREAM APPLIED TO LOWER EXTREMITIES FOR DRY SKIN, PATIENT REPORTS SENSITIVE SKIN TO THE TOUCH. PATIENT IS NOT READY FOR BED AT THIS TIME. WILL CALL WHEN SHE IS READY FOR PM CARE TO BE DONE.
--- NOTE | 2017-05-08 00:10 | NUR ---
PM CARE PROVIDED FOR PATIENT. PATIENT REQUEST THE BEDPAN, AFTER SOME DISCUSSION IT WAS DISCOVERED THAT THE PATIENT WANTED TO LEAVE THE BEDPAN IN PLACE OVER NIGHT BECAUSE SHE WAS CONCERNED THAT STAFF WOULD NOT BE ABLE TO PLACE HER ON THE BEDPAN IN TIME. DISCUSSED THE RISK OF SKIN BREAKDOWN WITH THE PATIENT AND REMOVED THE BEDPAN UNTIL THE PATIENT HAS THE URGE TO GO. PATIENT REPORTS INCREASED PAIN AND PRN PAIN MEDS GIVEN. CALL LIGHT IN REACH. NO FURTHER NEEDS AT THIS TIME.
--- NOTE | 2017-05-08 03:47 | NUR ---
PATIENT REPORTED 10/10 PAIN. PATIENT DID NOT APPEAR ANXIOUS OR RESTLESS. SHE REPORTS SLEEPING WELL THE LAST FEW HOURS. PRN PAIN MEDS GIVEN PER ORDER. PATIENT DENIES FURTHER NEEDS AT THIS TIME. CALL LIGHT IN REACH.
--- NOTE | 2017-05-08 04:57 | NUR ---
PATIENT RESTING. EYES CLOSED. RR 16.
--- NOTE | 2017-05-08 05:13 | NUR ---
PATIENT RESTED ON AND OFF THROGUHOUT THE SHIFT. PRN PAIN MEDS PROVIDED X3. PRN NAUSEA MEDS X1, NO EMESIS. PATIENT ON RA. NOT OUT OF BED THIS SHIFT. ASSISTED WITH TURNING PRN. PICC LINE RETURNS BLOOD, SITE WNL. DRESSING IS IN PLACE ON CHEST AND BACK, SMALL AMOUNT OF DRAINAGE NOTED. SUPERPUBIC CATH.
--- NOTE | 2017-05-08 06:55 | NUR ---
MORNING VITAL SIGNS FOUND AN ORAL TEMP OF 102.0. INSTRUCTED PATIENT TO DEEP BREATH AND COUGH. ORAL TEMP REMAINED THE SAME. HOSPITALIST CONTACTED. ORDERS FOR BLOOD CULTURES OBTAINED. CULTURES COLLECTED AND SENT.
--- NOTE | 2017-05-08 07:55 | NUR ---
PATIENT IN BED. STATES SHE DOES NOT NEED ANYTHING, GOT HER BREAKFAST ORDERED. WHITEBOARD UPDATED, ROOM TIDIED.
--- NOTE | 2017-05-08 09:20 | NUR ---
COLLECTED VS AND I&O FOR PATIENT, NOTED BP SOFT 104/49 WITH P 90 AND URINE OUTPUT 100 FOR LAST 3.5 HOURS AND NOTED SEDIMENT IN URINE, AND APPEARS CONCENTRATED. REPORTED TO DR. ZUNIGA, TELEPHONE ORDER FOR LR BOLUS TO INFUSE OVER 1 HOUR. BOLUS INFUSING NOW. PATIENT AAOX3 THIS MORNING, NO COMPLAINTS OF NAUSEA. TOLERATED CREAM OF WHEAT FOR BREAKFAST AND 300 ML OF MILK. ENCOURAGED PATIENT TO DRINK FLUIDS, DISCUSSED POSSIBLE DEHYDRATION FROM FEVER THIS MORNING. PATIENT VERBALIZED UNDERSTANDING. 5/10 ON PAIN SCALE, STATES SPOT IN MIDDLE OF BACK IS HURTING AND HAS BEEN BOTHERING HER SINCE SHE WOKE UP THIS MORNING. REPORTS SLEPT WELL THROUGHOUT THE NIGHT.
--- NOTE | 2017-05-08 10:02 | NUR ---
RN IN ROOM
--- NOTE | 2017-05-08 11:30 | NUR ---
PATIENT ON BEDPAN, PATIENT VOIDED LIQUID FOUL ODOR STOOL, MILKY COLORED. REPORTED FINDINGS TO DR. ZUNIGA, NOT CONCERNED OF CONSISTENCY SECONDARY TO LAXATIVES BEING ADMINISTERED. DIGITAL CHECK PATIENT HAD NO HARD STOOL. NEW ORDER FOR SOAP GLORIA ENEMA. ADMINISTERED, PATIENT TOLERATED ABOUT 850 ML OF FLUID, NO RESULTS.
--- NOTE | 2017-05-08 11:48 | NUR ---
PATIENT ON BEDPAN
--- NOTE | 2017-05-08 13:33 | NUR ---
patient on bedside commode. assisted rn with dressing change.
--- NOTE | 2017-05-08 13:45 | NUR ---
PATIENT UP ON BSC ATTEMPTING TO HAVE BM. TOLERATED TRANSFER TO BSC WELL WITH LAVERN. WHILE UP ON BSC CHANGED DSG WHERE SHINGLES PRESENT. SKIN APPEARS RAW WITH SOME SLUFF AT WOUND SITES, DR. ZUNIGA TO ROOM TO ROUND. NEW ADAPTIC AND ABDS TO SITE. PATIENT REQUESTS TO CONTINUE TO SIT UP ON BSC, STATES " IT'S PROVIDING ME WITH SOME RELIEF FROM THE PAIN ON MY BACK TO BE SITTING UP". CALL LIGHT POSITIONED IN LAP, PATIENT VERBALIZES FEELING SAFE.
--- NOTE | 2017-05-08 14:47 | NUR ---
HANDED PATIENT REPORT TO [facility] MAIN.
--- NOTE | 2017-05-08 15:10 | NUR ---
pt back to bed from bsc. no BM. provided dulcolax and miralax bulk bottle. pt periarea had skin build up. RN attempted to clean as well as possible. somewhat red. excoriated. barrier cream applied to perineal area. pt adjusted in bed for comfort.
--- NOTE | 2017-05-08 15:23 | NUR ---
HELPED NURSE FAREED CHANGE BANDAGES AND PUT PT ON THE BED JORDAN.
--- NOTE | 2017-05-08 15:29 | NUR ---
RECEIVED REPORT FROM FAREED MAIN AT 1430 TO ASSUME CARE FOR PATIENT FOR REMAINDER OF SHIFT.
--- NOTE | 2017-05-08 17:29 | NUR ---
CONTACT AND AIRBORNE PRECAUTIONS FOR SHINGLES. RASH ON BACK AND CHEST. COVERED WITH ADAPTIC, ABD, AND "UNDERWEAR" WRAP. ON AIR BED FOR REPOSITIONING. SUPRAPUBIC CATHETER IN PLACE. PROVIDED PERICARE AFTER UP TO BSC TO HAVE UNSUCCESSFUL BM. PERINEAL AREA EXCORIATED AND NEEDS MORE FREQUENT CARE. BEDREST/TURN Q2H. APPETITE POOR. NO BM SINCE 05/03. LR BOLUS TODAY FOR LOW UO. ACYCLOVIR IV. D5LR @ 100 INFUSING INTO MIDLINE IN XENIA. MORPHINE AND ZOFRAN X1.
--- NOTE | 2017-05-08 18:21 | NUR ---
TOOK VITALS. FRESH ICE WATER. EMPTY GARBAGE
--- NOTE | 2017-05-08 19:00 | NUR ---
SHIFT REPORT RECIEVED. PATIENT SITTING UP IN BED EATING DINNER. IN ROOM. NO NEEDS AT THIS TIME.
--- NOTE | 2017-05-08 20:00 | NUR ---
PATIENT REPORTED 10/10 PAIN. PATIENT WAS RESTING IN BED. RR14. NO APPARENT DISTRESS. PRN PAIN MEDS GIVEN PER ORDER. PATIENT ALSO STATES THAT HER STOMACH IS HURTING AND HER NUASEA HAS INCREASED. PRN NAUSEA MEDS GIVEN PER ORDER. PATIENT'S IS AT BEDSIDE.
--- NOTE | 2017-05-08 20:26 | NUR ---
NEW ORDER PLACED BY DR. ZUNIGA FOR PATIENT TO HAVE DESITIN CREAM APPLIED FOR REDNESS BID. DESITIN NOT AVAILABLE AT THIS TIME FROM PHARMACY. SPOKE WITH ONCALL PHARMACIST JEANCARLOS. JEANCARLOS RECOMMENDS USING PETROLEUM BASED SKIN PROTECTENT IN PLACE OF DESITIN UNTIL AM APPLICATION NEEDED. DISCUSSED WITH DR ZUNIGA AND HE AGREES WITH THIS PLAN.
--- NOTE | 2017-05-08 21:30 | NUR ---
EVENING MEDS GIVEN PER ORDER. PATIENT IS AAOX3. STATES HER PAIN IS BETTER, RATED 8/10. NAUSEA HAS DECREASED. SHE STATES HER MOUTH AND THROAT HURTS, A LOZENGE WAS PROVIDED TO HER. PATIENT'S LUNGS ARE CLEAR IN UPPER LOBES BILATERALLY AND DIMINISHED IN THE BASES. ABD IS SOFT AND NONTENDER, BOWEL SOUNDS ACTIVE. PATIENT DENIES FEELING CONSTIPATED OR THE URGE TO HAVE A BM. SORAYA CARE PROVIDED, ALOE CREAM APPLIED TO RED AREAS. CATH CARE PERFORMED. DRESSING ARE IN PLACE ON CHEST AND BACK, MINIMAL DRAINAGE NOTED. PATIENT REPOSITIONED FOR COMFORT. ORAL CARE SUPPLIES PROVIDED TO PATIENT AND SHE BRUSHED HER OWN TEETH WITHOUT INCREASED PAIN. PATIENT PROVIDED WITH WARM BLANKET AND DENIES ANY FURTHER NEEDS. CALL LIGHT IN REACH.
--- NOTE | 2017-05-09 00:15 | NUR ---
PATIENT RESTING IN BED. EYES CLOSED. RR 18.
--- NOTE | 2017-05-09 03:15 | NUR ---
PATIENT REPORTED 8/10 PAIN. PRN PAIN MEDS GIVEN. PATIENT REPORTS THAT SHE MIGHT NEED TO HAVE A BM SOON. REQUEST TO USE THE BEDPAN. THE COMMUTATOR TESTER AND RN ASSISTED THE PATIENT TO TURN. AFTER MULTPILE ATTEMPTS OF TRYING TO COMFORTABLY POSITION THE BEDPAN THE PATIENT STATES THAT SHE WILL NOT USE THE BEDPAN RIGHT NOW. AGREED TO LET THE PAIN MEDS TAKE EFFECT AND THEN WILL ATTEMPT TO PLACE THE BEDPAN AGAIN. PATIENT DOES NOT WANT TO LAVERN TO THE [facility]. SHE STATES THAT "THINGS ARE MOVING" IN HER BOWELS BUT DOES NOT BELEIVE SHE NEEDS TO HAVE A BM RIGHT NOW. WILL CONTINUE TO MONITOR.
--- NOTE | 2017-05-09 05:12 | NUR ---
PATIENT RESTED WELL THROUGHOUT THE NIGHT. AAOX3. USES CALL LIGHT APPROPRIATELY. PICC IN RIGHT ARM RETURNS BLOOD AND FLUSHES WELL, SITE WNL. OUTPUT QS. DRESS INTACT, SMALL AMOUNT OF DRAINAGE NOTED FROM CHEST AND BACK. ALOE CREAM APPLIED TO SORAYA AREA. NO BM THIS SHIFT. PAIN CONTROLLED WITH ORAL PAIN MEDS, X2.
--- NOTE | 2017-05-09 06:26 | NUR ---
PRN PAIN MEDS GIVEN FOR 8/10 PAIN. BREAKFAST ORDER OBTAINED. LABS DRAWN. MORNING MEDS AND VITALS COMPLETE. PATIENT DENIES FURTHER NEEDS.
--- NOTE | 2017-05-09 09:03 | NUR ---
JOSE E RODRIGUEZ DISCHARGE PLANNING. TO VERIFY IS PATIENT COULD BE MADE SWING BED PER 'S REQUEST. JOSE E SAID YES SHE COULD BE MADE SWING BED TODAY IF THAT IS 'S DECISION.
--- NOTE | 2017-05-09 09:20 | NUR ---
PT IN BED. AM CARE. ON BED JORDAN. FRESH ICE WATER. SET UP FOR BF
--- NOTE | 2017-05-09 11:24 | NUR ---
germaine up to bsc. changing dressings on chest and back with new adaptic, abd pads and "underwear" wrap. morphine given for back pain.
--- NOTE | 2017-05-09 13:51 | NUR ---
NO SUCCESS ON HAVING A BM. PT UP TO BSC WITH LAVERN AND ATTEMPTED TO STAND WITH PHYSICAL THERAPIST AND 2 RNs. UNABLE. LAVERN BACK TO BED. BACK PAIN WORSE TODAY. DRESSINGS CHANGED WHILE UP ON BSC.
== END 2017-05-09 13:30 | disposition swing bed (61) | DRG 866 ==
LOC: ED 08:45 → MS 15:06
PROVIDERS: ADMIT Internal Medicine
PROC: 05H533Z Insertion of Infusion Device into Right Subclavian Vein, Percutaneous Approach (ICD-10-PCS; principal; 2017-05-06 14:30)
DX: B02.7 Disseminated zoster (principal); G58.8 Other specified mononeuropathies; K59.03 Drug induced constipation; T40.2X5A Adverse effect of other opioids, initial encounter; G35 Multiple sclerosis; N31.9 Neuromuscular dysfunction of bladder, unspecified; N39.498 Other specified urinary incontinence
CPT/HCPCS: 36415; 36569; 71010; 80053; 81001; 83605; 83735; 85025; 85520; 86703; 86787; 87040; 87798; 97163; 97530; C1751; J0133; J0696; J1170; J1650; J2270; J2405; J2550; J3475; J7030; J7120

== ENCOUNTER 2017-05-09 13:30 | Inpatient (IN) | payer MEDICARE, OTHER ==
[~2017-05-09] VITALS: Ht 162.6 cm; Wt 59.2 kg
--- OUTSIDE RECORDS SUMMARY | ~2017-05-09 | XMS | Encounter Summary ---
Demographics + + + | Address | [address] | | | [place] [address] | + + + | Home Phone | | + + + | Preferred Language | Unknown | + + + | Marital Status | | + + + | Protestant Affiliation | Unknown | + + + | Race | White | + + + | Ethnic Group | Not or | + + + Author + + + | Author | [facility] | + + + | Organization | [facility] | + + + | Address | Unknown | + + + | Phone | Unavailable | + + + Support +------+ + + + +-------+ | Name | Relationship | Address | Phone | +------+ + + + +-------+ ECON | [address] | | [place] | [address] | +------+ + + + +-------+ Care Team Providers + +------+ + | Care Neurobiologist Name | Role | Phone | + +------+ + PCP | Unavailable | + +------+ + Reason for Visit +--------+ + | Reason | Comments | +--------+ + | Rash | | +--------+ + Encounter Details +--------+ + + + + | Date | Type | Department | Care Team | Description | +--------+ + + + + | 05/05/ | Emergency | [facility] Emergency | | | | 2016 | | Department [address] | | | | | [address] | | | | | | [facility] | | | | | | [place] [address] | | | | | | [phone] | | | +--------+ + + + + Social History + +-------+ +--------+------+ | Tobacco [...] on file | | + + + as of this encounter Medications at Time of Discharge + + +-------+---------+--------+ + | Medication | Sig. | Disp. | Refills | Start | End Date | | | | | | Date | | + + +-------+---------+--------+ + | Desmopressin | take 1 tablet (0.2 | | | | | | Acetate 0.2 mg Oral | mg) by oral route 2 | | | | | | Tablet | times per day | | | | | + + +-------+---------+--------+ + | Oxybutynin | take 1 tablet (10 | | | | | | Chloride 10 mg Oral | mg) by oral route | | | | | | Tab,Sust Rel Osmotic | once daily | | | | | | Push 24hr | | | | | | + + +-------+---------+--------+ + | Tizanidine HCl 4 | take 1 tablet (4 mg) | | | | | | mg Oral Tablet | by oral route every | | | | | | | 8 hours as needed | | | | | | | not to exceed 3 | | | | | | | doses in 24 hours | | | | | + + +-------+---------+--------+ + as of this encounter Plan of Treatment Not on fileas of this encounter Visit Diagnoses Not on filein this encounter"
[~2017-05-09 13:30] MED LIST changes: +METHYLPREDNISOLO4 MG PO; +OCREVUS300 MG/10 IV
--- NOTE | 2017-05-09 14:00 | NUR ---
TOOK PT VITALS. SET HER BED TO ROTATING. EMPTYED GARBAGE. TOOK LUNCH TRAY.
--- NOTE | 2017-05-09 17:39 | NUR ---
pt doing well. stated she did not need anything
--- NOTE | 2017-05-09 17:53 | NUR ---
PT WAS CHANGED TO SWING BED TODAY. DRESSING CHANGE COMPLETED. ON BACK AND SIDE BLISTERS. PAIN MEDICATION CHANGED TO PO. DESITIN ORDERED FOR SORAYA AREA. SUPRA PUBIC CATHETER DRAINING ADEQUATELY. UP TO COMMODE X2 VIA LAVERN. NO BM'S. NEW BOWEL REGIMEN STARTED. D5LR @ 100 IN RIGHT UPPER ARM MID LINE. ACYCLOVIR IV. 250ML NS BOLUS TO FOLLOW ACYCLOVIR. AIR BED FOR REPOSITIONING. WORKING WITH PHISICAL THERAPY. AFEBRILE TODAY.
--- NOTE | 2017-05-09 19:19 | NUR ---
RECIEVED REPORT FROM DAY SHIFT NURSE. PATIENT RESTING IN BED. AT BEDSIDE. CALL LIGHT IN REACH.
--- NOTE | 2017-05-09 20:04 | NUR ---
PATIENT RESTING IN BED. DRESSINGS ON BACK/CHEST IN PLACE. PT RATES BACK PAIN 8/10, LONG ACTING MORPHINE ADMINISTERED. VS OBTAINED. LOTION APPLIED TO BLE. SCABS PRESENT ON BILATERAL GREAT TOES. BAR ON FOOT OF BED TO KEEP SHEETS/BLANKETS OFF FEET. HEEL PROTECTORS IN PLACE. PT IS ON AN AIR BED TO ASSIST WITH REPOSITIONING. CALL LIGHT IN REACH.
--- NOTE | 2017-05-09 21:22 | NUR ---
ETELVINA WERNER AND I PUT PT ON THE BED JORDAN PER HER REQUEST. WE LEFT THE ROOM PER PT TO GIVE HER PRIVACY TO TRY AND HAVE A BM.
--- NOTE | 2017-05-09 22:08 | NUR ---
COMMUNITY RELATIONS OFFICER IN TO ASSIST PT WITH ORAL CARE. PT C/O PAIN IN HER BACK AND ABD 02/14. ADMINISTERED MORPHINE PO. TOOK PT OFF BEDPAN WITH NO RESULTS. FRESH WATER GIVEN. PT ALSO C/O NAUSEA. ADMINISTERED PHENERGAN. PT DENIES FURTHER NEEDS. CALL LIGHT IN REACH.
--- NOTE | 2017-05-09 23:24 | NUR ---
PLACED PT ON BEDPAN. NO C/O PAIN AT THIS TIME. NOTIFIED PT TO RING THE CALL VENTURA WHEN SHE IS FINISHED. CALL LIGHT IN REACH. PT IS ALERT AND ORIENTED.
--- NOTE | 2017-05-09 23:49 | NUR ---
PT STILL ON BEDPAN. STATES SHE NEEDS A FEW MORE MINUTES. CALL LIGHT IN REACH.
--- NOTE | 2017-05-09 23:51 | NUR ---
PT OFF BEDPAN. NO RESULTS. REPOSITIONED ON L SIDE. CALL LIGHT IN REACH.
--- NOTE | 2017-05-10 00:58 | NUR ---
PATIENT SLEEPING. CALL LIGHT IN REACH.
--- NOTE | 2017-05-10 02:00 | NUR ---
PATIENT RESTING IN BED WITH EYES CLOSED. APPEARS TO BE SLEEPING. CALL LIGHT IN REACH.
--- NOTE | 2017-05-10 02:30 | NUR ---
PATIENT CALLED TO HAVE SOMEONE CHECK TO SEE IF SHE HAD A BM. PT FOUND DRY. BEAM PRESS OPERATOR MOVED PILLOWS AROUND IN HER BED. CALL LIGHT IN REACH.
--- NOTE | 2017-05-10 04:00 | NUR ---
TOOK PT OFF OF BEDPAN. NO RESULTS. NO C/O PAIN OR NAUSEA AT THIS TIME. PT STATES SHE IS GETTING SOME GOOD REST. PT IS SEMIFOWLERS AT THIS TIME ON AN AIR BED. HYDRATION GIVEN. PT DENIES FURTHER NEEDS. CALL LIGHT IN REACH.
--- NOTE | 2017-05-10 06:30 | NUR ---
ADMINISTERED SUPPOSITORY AND MILK OF MAG. PT C/O PAIN 5/10 IN HER BACK AND ABD. ADMINISTERED MORPHINE PRN. FRESH WATER DELIVERED. REPOSITIONED ON L SIDE. PT DENIES FURTHER NEEDS. ABX INFUSING. CALL LIGHT IN REACH.
--- NOTE | 2017-05-10 07:35 | NUR ---
REPORT RECEIVED FROM UMAIR. PATIENT RESTING IN BED, NO COMPLAINTS AT THIS TIME. WILL CONTINUE TO MONITOR.
--- NOTE | 2017-05-10 09:00 | NUR ---
IN TO PATIENT FOR ASSESSMENT. PATIENT REPORTED 8/10 BACK PAIN. AND MILD NAUSEA. PATIENT WAS MEDICATED. SHIFT ASSESSMENT DONE. DRESSING ON RIGHT SIDE/BACK IN PLACE. NO DRAINAGE. SUPRA PUBIC CATH IN PLACE AND DRAINING WELL. SKIN DRY. SORAYA CARE AND ORAL CARE DONE. PATIENT WAS REPOSITIONED, SITTING IN BED EATING BREAKFAST. CALL LIGHT WITHIN REACH.
--- NOTE | 2017-05-10 10:29 | NUR ---
PATIENT WAS ASSISTED TO BED JORDAN. BECAME NAUSEATED. ZOFRAN ADMINISTERED. VS SIGNS WNL. NO DISTRESS. WILL CONTINUE TO MONITOR.
--- NOTE | 2017-05-10 12:09 | NUR ---
PHYSICAL THERAPIST WAS IN ROOM WITH PATIENT. PATIENT REPORTED BACK AND ABD PAIN AND NAUSEA. PATIENT MEDICATED. REFUSED TO LUNCH DUE TO NAUSEA. RESTING IN BED AT THIS TIME. CALL LIGHT WITHIN REACH. NO OTHER REQUEST.
--- NOTE | 2017-05-10 14:13 | NUR ---
HAD QUITE A LENGTHY VISIT WITH AZAM. SHARED WITH ME SOME OF WHAT HE HAS LEARNED ABOUT MS WITH PT HAVING IT. RUNS IN HER FAMILY, [facility] MENTIONED TO PAT THAT IF PT WANTS CONTRACT ASSOCIATE TO VISIT, WE CAN ARRANGE IT. HE SAID HE WOULD VISIT WITH HER AND LET ME KNOW. HE FELT A NEED TO GO IN AND CHECK ON HER. EXTENDED A BLESSING, WILL CONTINUE TO VISIT.
--- NOTE | 2017-05-10 14:39 | NUR ---
DRESSING CHANGED ON THE RIGHT SIDE/BREAST/BACK. PATIENT TOLERATED WELL. PATIENT WAS MEDICATED FOR PAIN. AFTERNOON MEDS ADMINISTERED. PATIENT REPORT NO NAUSEA AT THIS TIME. PATIENT WAS REPOSITIONED. RESTING IN BED AT THIS TIME. PATIENT WAS ASSISTED X2 TO BED JORDAN NO BM.
--- NOTE | 2017-05-10 18:49 | NUR ---
PATIENT HAD A FAIR DAY. DRESSING WAS CHANGED ADAPTIC AND ABD PAD REAPPLIED. PAIN CONTROL WITH PO MORPHINE. SUPRA PUBIC CATH IN PLACE AND DRAINING WELL. PATIENT HAD MIDLINE ON THE RIGHT UPPER FLUSHED WELL WITH GOOD BLOOD RETURN. ACYCLOVIR IV FOLLWED BY 250ML OF NS BOLUS. PATIENT HAD SUPPOSITORY TODAY AND OTHER BOWEL TX WITH NO RESULT. NO FEVER. PATIENT WAS REPOSITIONED THROUGHOUT THE DAY. ZOFRAN AND PHENERGAN WERE ADMINISTERED FOR NAUSEA.
--- NOTE | 2017-05-10 19:44 | NUR ---
RECIEVED REPORT FROM DAY SHIFT NURSE. PATIENT RESTING IN BED WITH AT BEDSIDE. CALL LIGHT IN REACH.
--- NOTE | 2017-05-10 20:00 | NUR ---
PLACED PT ON THE BEDPAN. VANICREAM TO LEGS. LUNGS DIFFICULT TO AUSCULTATE DUE TO DRESSINGS. HR REG. HYPOACTIVE BS. PT RATES PAIN 6/10 IN HER BACK AND R SHOULDER. MS CONTIN ADMINISTERED. PT ON AIR BED. PT STATES SHE FEELS NAUSEOUS. UNABLE TO GIVE NAUSEA MEDS AT THIS TIME, WAITING A FEW MINUTES TO SEE IF IT PASSES BEFORE CALLING MD. CALL VENTURA IN REACH.
--- NOTE | 2017-05-10 20:15 | NUR ---
TOOK PT OFF OF BEDPAN. SMALL AMOUNT OF MUCOUSY STOOL. PERICARE PERFORMED. PLACED BRIEF UNDER PATIENT. CALL LIGHT IN REACH.
--- NOTE | 2017-05-10 20:39 | NUR ---
ASSISTED THE NURSE, PATIENT USED THE BED JORDAN AND CLEANED UP.
--- NOTE | 2017-05-10 21:15 | NUR ---
PATIENT STATES NAUSEA HAS PASSED. PT HAVING A SNACK WHEN I WALKED IN. DENIES NEEDS AT THIS TIME. CALL LIGHT IN REACH.
--- NOTE | 2017-05-10 21:29 | NUR ---
PT STATES SHE IS NAUSEOUS AGAIN. ADMINISTERED PO ZOFRAN.
--- NOTE | 2017-05-10 21:45 | NUR ---
PLACED PT ON BEDPAN.
--- NOTE | 2017-05-10 21:57 | NUR ---
PT STATES SHE NEEDS MORE TIME ON BEDPAN. CALL LIGHT IN REACH.
--- NOTE | 2017-05-10 22:15 | NUR ---
REMOVED PT FROM BEDPAD. SMALL AMOUNT OF MUCOUS IN BEDPAN. PERICARE PERFORMED. NEW BRIEF APPLIED. ABX INFUSING. PT DENIES NAUSEA. CALL LIGHT IN REACH.
--- NOTE | 2017-05-10 22:28 | NUR ---
2 PERSON ASSISTED PATIENT TO USE BED JORDAN AND CLEANED UP.
--- NOTE | 2017-05-11 02:00 | NUR ---
PATIENT SLEEPING EVIDENCE BY SNORING. CALL LIGHT IN REACH.
--- NOTE | 2017-05-11 06:30 | NUR ---
EDUCATED PT ON THE IMPORTANCE TO ONLY TAKE MORPHINE FOR SEVERE PAIN BECAUSE IT IS MOST LIKELY THE REASON WHY SHE IS SO CONSTIPATED. PT STILL REQUESTING FOR MORPHINE, STATES THERE IS ONE SPOT ON HER BACK THAT HURTS. I TRIED REPOSITIONING HER OFF THAT ONE SPOT ON HER BACK, PT SHE STATES IT DID NOT HELP HER PAIN. MORPHINE ADMINISTERED. CHECKED BRIEF FOR EPISODE OF INCONT. FOUND DRY. EMPTIED CATHETER. CLEANED AROUND SUPRAPUBIC CATHETER SITE WITH WARM, SOAPY WATER. PT DENIES FURTHER NEEDS. CALL LIGHT IN REACH.
--- NOTE | 2017-05-11 07:10 | NUR ---
ASSIST ARMORED CAR GUARD WITH ADJUSTING PATIENT IN BED. CALL BUTTON IN REACH NO OTHER NEEDS AT THIS TIME.
--- NOTE | 2017-05-11 08:00 | NUR ---
RN IN ROOM ASSISTING PATIENT WITH BED BATH AND UP TO CHAIR.
--- NOTE | 2017-05-11 11:15 | NUR ---
DR. ZUNIGA IN TO SEE PATIENT, REVIEW HEALING PROGRESS OF SKIN LESIONS. OLD DRESSING REMOVED AND REPLACED WITH NON-STICK GUAZE PADS AND COVERED BY ABD PADS, MESH TO COVER ALL. DOCTOR DID REMOVE SKIN LESION CRUSTS BEFORE REDRESSING. PATIENT TOLERATED WELL. NO NEW LESION NOTED.
--- NOTE | 2017-05-11 11:20 | NUR ---
, MED STUDENTS ANR 2 RN'S IN ROOM TO ASSIST PATIENT DRESSING CHANGE. THIS INTERIOR DESIGN TEACHER CLEANED UP THE ROOM. NO NEEDS AT THIS TIME.
--- NOTE | 2017-05-11 11:47 | NUR ---
DRESSING CHANGE COMPLETED BY HOSPITALIST AND MED STUDENTS WITH HELP FROM CHARGE NURSE. HEP LOCKED MIDLINE XENIA. UPDATED PT ON PLAN OF CARE TO LAVERN PATIENT TO BED, PERFORM ENEMA, AND 30 MIN POST ENEMA TO GET PT ON BSC TO ATTEMPT BM. PT HAVING RECURRING NAUSEA THIS MORNING.
--- NOTE | 2017-05-11 13:20 | NUR ---
PATIENT UP TO BSC WITH 2 PERSON ASSIT WITH LAVERN OSHEA. ORAL CARE DONE. CALL BUTTON IN REACH.
--- NOTE | 2017-05-11 14:25 | NUR ---
HOYERED BACK TO BED. PLACED ON HER LEFT SIDE. GIVEN SOAP GLORIA ENIMA WITH 800 MLS FLUID. WILL AWAIT RESULTS.
--- NOTE | 2017-05-11 14:50 | NUR ---
PATIENT LAYING ON HER SIDE IN BED. CALL BUTTON IN REACH. NO OTHER NEEDS AT THIS TIME.
--- NOTE | 2017-05-11 18:15 | NUR ---
NO BM TODAY. SOAP SUDS ENEMA THIS AFTERNOON-- PRODUCED BROWN LIQUID BM FROM ENEMA, BUT NOTHING FORMED. DESITIN FOR PERIAREA. REPOSITIONED Q2H-- SPECIALTY BED TO REPOSITION ALSO. 2PA TO LAVERN TO BSC OR CHAIR. UP TO CHAIR FOR MOST OF MORNING. EMESIS TODAY. REFUSED PRN AND SCHEDULED PAIN MEDS. PAIN CONTROLLED. DRESSING CHANGE DONE BY HOSPITALIST-- NEW DRESSING CHANGE ORDERS PER MD. ACYCLOVIR DAY 6 . MIDLINE XENIA HEP LOCKED. ZOFRAN X2.
--- NOTE | 2017-05-11 19:20 | NUR ---
PATIENT RESTING IN BED WATCHING TV. IN ROOM. NO NEEDS AT THIS TIME. CALL BUTTON IN REACH.
--- NOTE | 2017-05-11 19:22 | NUR ---
RECEIVED REPORT FROM RN. PATIENT IS RESTING COMFORTABLY. CALL LIGHT WITHIN REACH.
--- NOTE | 2017-05-11 22:00 | NUR ---
PATIENT RESTING COMFORTABLY IN BED, BREATHING IS EVEN AND UNLABORED. REPORTS 3/10 PAIN BUT REFUSES TO TAKE PAIN MEDICATION. EDUCATED PATIENT ABOUT PAIN CONTROL, PATIENT STATES SHE UNDERSTANDS AND ALSO STATES "THE PAIN IS NOT BAD. IT'S GETTING A LOT BETTER." DENIES FURTHER NEEDS AT THIS TIME. REPOSITIONED FOR COMFORT, ASSESSMENT DONE. CALL LIGHT WITHIN REACH.
--- NOTE | 2017-05-11 23:53 | NUR ---
PATIENT RESTING COMFORTABLY IN BED, BREATHING IS EVEN AND UNLABORED. DENIES NEEDS AT THIS TIME. REPORTS PAIN IS BETTER IN LOWER BACK AFTER TYLENOL ADMINISTRATION. DENIES FURTHER NEEDS AT THIS TIME. CALL LIGHT WITHIN REACH.
--- NOTE | 2017-05-12 03:28 | NUR ---
PATIENT IS RESTING COMFORTABLY IN BED, BREATHING IS EVEN AND UNLABORED. SHE STATES SHE HAS 0/10 PAIN. DENIES NEEDS AT THIS TIME. CALL LIGHT WITHIN REACH.
--- NOTE | 2017-05-12 06:51 | NUR ---
PATIENT REPOSITIONED FOR COMFORT. REPORTS 0/10 PAIN. DENIES FURTHER NEEDS. MEDICATIONS GIVEN. CALL LIGHT WITHIN REACH.
--- NOTE | 2017-05-12 07:48 | NUR ---
REPORT RECIEVED FROM ETELVINA MONTALVO. PT AWAKE AND TALKING ON PHONE. ACYCLOVIR INFUSION DONE, STARTED BOLUS. PT DENIES FURTHER CONCERNS.
--- NOTE | 2017-05-12 09:46 | NUR ---
ADMINISTERED PT MEDS. PT DECLINED MORPH AND LACTULOSE. STATES SHE WILL NOT TAKE THE LACTULOSE AGAIN IT MAKES HER SICK. EXPLAINED THAT IT IS SUPPOSED TO GIVE HER DIAHRREA BUT SHE STATES IT MAKES HER THROW UP. ADJUSTED PT IN BED FOR BREAKFAST AND HELPED GET IT READY. DID VITALS AND EMPTIED SARMIENTO AND CHARTED BOTH. TOLD HER WE WOULD GET HER UP IN CHAIR AND ADLS AFTER SHE WAS DONE EATING. PT DENIES FURTHER CONCERNS.
--- NOTE | 2017-05-12 11:09 | NUR ---
PT UP TO BEDSIDE CHAIR WITH LAVERN AND 2 PERSON LIFT. IN ROOM. PT STATES SHE IS COMFORTABLE IN CHAIR POSITIONED. CALL LIGHT IN REACH.
--- NOTE | 2017-05-12 14:02 | NUR ---
PT CALLED TO GET UP FROM THE CHAIR AND BACK TO BED. HOYERED WITH 2 PERSON ASSIST. TOLERATED WELL. ADJUSTED SEVERAL TIMES IN BED UNTIL COMFORTABLE. IN ROOM. DENIES NEEDING PAIN MEDICATION.
--- NOTE | 2017-05-12 15:34 | NUR ---
ADMINISTERED SCHED. MEDS. PT AGAIN REFUSED MS CONTIN AND ENULOSE.
--- NOTE | 2017-05-12 18:02 | NUR ---
CHANGED PT DRESSING AND CLEANED AREA WITH HELP OF SHANTANU SEBASTIAN. PT TOLERATED WELL ALTHOUGH WAS QUITE PAINFUL. PT DECLINED MS CONTIN. IN WITH [employer].
--- NOTE | 2017-05-12 18:45 | NUR ---
PT DID WELL TODAY. DRESSING CHANGED. PT DECLINED MS CONTIN AND LACTULOSE. UP IN CHAIR.
--- NOTE | 2017-05-12 19:25 | NUR ---
RECEIVED REPORT FROM RN. PATIENT IS RESTING COMFORTABLY IN BED, BREATHING IS EVEN AND UNALBORED. REPORTS 0/10 PAIN. DENIES NEEDS AT THIS TIME. CALL LIGHT WITHIN REACH.
--- NOTE | 2017-05-12 23:35 | NUR ---
PATIENT ON BEDPAN DUE TO STATING "I NEED TO HAVE A BOWEL MOVEMENT." REPORTS 4/10 PAIN IN BOWELS FROM NEED TO HAVE BM. NO OTHER NEEDS AT THIS TIME.
--- NOTE | 2017-05-12 23:54 | NUR ---
PATIENT REPORTS 4/10 PAIN IN BOWEL AND BACK. PRN TYLENOL GIVEN PER EMAR. PATIENT DENIES FURTHER NEEDS AT THIS TIME. CALL LIGHT WITHIN REACH.
--- NOTE | 2017-05-13 03:51 | NUR ---
PATIENT PUT ON BEDPAN DUE TO NEEDING TO HAVE A BM. ALSO GAVE SUBLINGUAL ZOFRAN DUE TO NAUSEA AND TYLENOL FOR 7/10 BACK PAIN. PATIENT STATES THAT SHE DOES NOT WANT TO TAKE THE MORPHINE FOR PAIN, SHE STATES "THE TYLENOL WILL BE FINE." PATIENT ALSO REPOSITIONED IN BED FOR COMFORT. DENIES OTHER NEEDS AT THIS TIME. CALL LIGHT WITHIN REACH.
--- NOTE | 2017-05-13 04:25 | NUR ---
PATIENT STILL REPORTS 7/10 PAIN IN BACK. PRN MORPHINE GIVEN PER EMAR. PATIENT IS RESTING IN BED, BREATHING EVEN AND UNLABORED. DENIES FURTHER NEEDS AT THIS TIME. CALL LIGHT WITHIN REACH.
--- NOTE | 2017-05-13 05:26 | NUR ---
PATIENT'S NIGHT WAS UNEVENTFUL. SHE HAS BEEN RESTING THROUGHOUT SHIFT. VSS, PATIENT HAS COMPLAINED OF PAIN IN BACK DUE TO SORES. REFUSED SCHEDULED MORPHINE, BUT RECEIVED PRN MORPHINE AROUND [id number]. PATIENT STILL UNABLE TO HAVE BM. REQUIRES LAVERN TRANSFER TO [facility], [facility] 2PA. NO ACUTE CHANGES FROM BEGINNING OF SHIFT.
--- NOTE | 2017-05-13 06:56 | NUR ---
PATIENT APPEARS IN DISCOMFORT. REPORTS 8/10 PAIN IN BACK DUE TO SORES AFTER TURNING PATIENT FOR SUPPOSITORY. PRN MORPHINE GIVEN PER EMAR. PATIENT DENIES FURTHER NEEDS. CALL LIGHT WITHIN REACH.
--- NOTE | 2017-05-13 08:14 | NUR ---
emptied pt cath. tidied up the room. 250 bolus of NS infusing. pt is relaxed. applied lotion to LE. picc line dressing clean dry and intact.
--- NOTE | 2017-05-13 10:44 | NUR ---
NURSE BARRIENTOS INFORMED ME SHE HAS CHARTED PT'S I&O'S AND WILL TAKE HER VITALS LATER.
--- NOTE | 2017-05-13 11:29 | NUR ---
GOT PT OFF BEDPAN. HAD SMALL AMOUNT OF BOWEL. CLEANED UP AND APPLIED DESITIN. CHANGED PT POSITION. MADE SURE COMFORTABLE. CALL LIGHT IN REACH.
--- NOTE | 2017-05-13 13:59 | NUR ---
PT COMFORTABLE IN BED. STARTED ANTIVIRAL. NO PAIN.
--- NOTE | 2017-05-13 15:56 | NUR ---
PT TRANSFERRED TO BS TO ATTEMPT BM. DRESSINGS ON BACK AND CHEST CHANGED WHILE ON COMMODE (LAVERN TO [facility] [place] ZOFRAN IV FOR NAUSEA GIVEN. TOOK SCHEDULED MORPHINE. 250ML NS BOLUS INFUSING NOW. WILL LAVERN PT BACK TO BED SOON. CALL LIGHT WITHIN REACH.
--- NOTE | 2017-05-13 16:33 | NUR ---
pt up to commode to try for a bowel movement. MOVED PT TO CHAIR VIA LAVERN. TOLLERATED WELL. CALL LIGHT IN REACH. LEGS ELEVATED WITH HEEL BOOTS IN PLACE. PT NAUSEOUS. ZOFRAN GIVEN. SALINE LOCKED XENIA.
--- NOTE | 2017-05-13 17:55 | NUR ---
HX OF MS. TRANSFER VIA LAVERN LIFT. TOOK SCHEDULED MORPHINE TODAY. CHANGED BANDAGE ON SORES TODAY. DAY 8 OF 10 ACYCLOVIR GIVEN, FOLLOW ACYCLOVIR WITH 250ML BLUS OF NS. PT GIVEN ZOFRAN FOR NAUSEA X1. UP TO THE COMMODE WITH A SMALL LIQUID BOWEL MOVEMENT. BOWEL REGIMINE IN PLACE. VSS THROUGHOUT DAY. PICC IN XENIA HEPARIN LOCKED.
--- NOTE | 2017-05-13 19:10 | NUR ---
SHIFT REPORT RECIEVED. PATIENT UP IN RECLINER. AT BEDSIDE.
--- NOTE | 2017-05-13 20:15 | NUR ---
EVEING MEDS GIVEN PER ORDERS. PATIENT IN RECLINER. REQUEST TO USE BSC. PATIENT HOYERED WITH ASSISTANCE FROM RN AND ASSISTANT CROSS COUNTRY COACH. PATIENT TOLERATED WELL. PATIENT ON BSC FOR 10+ MINS. ONLY A SMEAR OF BM AND FREQUENT FLATULANCE OCCURED. PATIENT HOYERED TO BED. SORAYA CARE AND CATH CARE PERFORMED. PATIENT'S DRESSING ARE INTACT WITH SMALL AMOUNT OF SEROSANGUENOUS DRAINAGE. PATIENT IS AAOX3. LUNGS CLEAR. ABD SOFT, NONTENDER AND BOWEL SOUNDS ACTIVE. TURNING THERAPY TURNED ON THE BED TO REDUCE PRESSURE ON PATIENTS BACKSIDE. PATIENT REPORTS BEING COMFORTABLE AND REPORTS PAIN AT 7/10. SCHEDULED PAIN MEDICATION PROVIDED WITH EVENING MEDS. HEEL PROTECTORS ON. CALL LIGHT IN REACH. BEDSIDE TABLE IN REACH WITH PATIENTS PERSONAL BELONGING ON IT. FRESH ICE WATER PROVIDED. NO FURTHER REQUEST AT THIS TIME.
--- NOTE | 2017-05-13 22:54 | NUR ---
PATIENT REQUEST ASSISTANCE WITH ORAL CARE AND FINISHING PM CARE. SHANTANU EMERY ASSISTED PATIENT.
--- NOTE | 2017-05-13 23:00 | NUR ---
EVENING DOSE OF ANTIVIRAL ADMINISTERED PER ORDERS. PATIENT STATES SHE IS READY FOR SLEEP. PM CARE DONE. PATIENT STATES SHE IN COMFORTABLE. REPORTS 7/10 PAIN, UNCHANGED FROM PRIOR TO ADMINISTRATION OF SCHEDULED PAIN MEDICATION. PATIENT DENIES NEED FOR MORE PAIN MEDICATION AT THIS TIME. CLAIMS HER STOMACH IS "CRAMPING, LIKE GAS PAIN". DENIES FURTHER NEEDS AT THIS TIME. CALL LIGHT IN REACH.
--- NOTE | 2017-05-14 01:37 | NUR ---
IV MEDS FINISHED. PUMPS CLEARS AND CAP PLACED ON PICC LINE. PATIENT REPORTS STOMACH ACHES, DENIES NEED FOR ANYTHING TO DRINK OR CRACKERS. DENIES NAUSEA AND DOES NOT WANT PRN PAIN MEDS. PATIENT STATES SHE WILL CALL IF IT GET WORSE OR SHE FEELS NAUSEOUS. CALL LIGHT IN REACH.
--- NOTE | 2017-05-14 02:50 | NUR ---
PATIENT RESTING IN BED. EYES CLOSED. RR 15.
--- NOTE | 2017-05-14 05:10 | NUR ---
PATIENT RESTING IN BED. EYES CLOSED. RR16. CALL LIGHT IN REACH.
--- NOTE | 2017-05-14 05:35 | NUR ---
PATIENT SLEPT WELL THROUGHOUT THE NIGHT. LAVERN FROM RECLINER TO CHAIR. USED BSC X1, NO RESULTS. DRESSING ARE IN PLACE, SMALL AMOUNT OF DRAINAGE. SUPERPUBIC CATH CARE PERFORMED X2. SPECIALTY BED SET TO TURN PATIENT Q30MIN. PATIENT REPORTED GOOD PAIN CONTROL FOR HER WOUND AREA, BUT HER STOMACH HAS BEEN ACHING WITH NO RELIEF FROM MEDICATIONS. PICC IN R ARM, HEPA-LOCKED.
--- NOTE | 2017-05-14 06:03 | NUR ---
IV ACYCLOVIR STARTED. PATIENT STATES HER STOMACH ACHE HAS IMPROVED. BREAKFAST ORDER RECIEVED. PAIN 5/10 IN HER BACK. PATIENT REFUSED SCHEDULED SUPPOSITORY. SHE WORRIES THAT IS THE CAUSE OF HER STOMACH ACHE. DISCUSSED THE INDICATIONS FOR MEDICATION WITH PATIENT, SHE VERBALIZED UNDERSTANDING. PATIENT DENIED FURTHER NEEDS AT THIS TIME.
--- NOTE | 2017-05-14 07:53 | NUR ---
REPORT RECEIVED FROM ASSUMING PATIENT CARE AT THIS TIME.
--- NOTE | 2017-05-14 08:45 | NUR ---
IN TO ROOM TO ASSESS PATIENT. PATIENT WAS CHANGED AND TRANSFERED TO BEDSIDE COMMODE, THEN TO CHAIR. PATIENT REPORTS 5/10 BACK PAIN. PICC LINE FLUSHED. ASSESSMENT COMPLETED. DRAINAGE NOTED ON DRESSING IN RIGHT BACK AND CHEST. PATIENT WAS MEDICATED FOR NAUSEA AND PAIN. WILL CONTINUE TO MONITOR.
--- NOTE | 2017-05-14 10:38 | NUR ---
CARE CONFERENCE ATTENDEES: PT PAT STAFF: DR ORTIZ, MYSELF-CASE MANAGEMENT, [facility], JOANNE MAIN CHARGE, MEDICAL STUDENT. DR ORTIZ DISCUSSED WITH PT ABOUT WHAT PT WOULD NEED GOING FORWARD AND STATED THAT SHE THOUGHT SHE MIGHT BE APPROPRIATE FOR AN LTAC OR SHEET METAL CONTRACTOR REHAB FACILITY TO GET HER BACK TO HER BASELINE. PT STATED THAT HE WOULD REALLY LIKE TO TAKE HER BACK HOME AND THAT HE IS SET UP TO ACCOMPLISH THIS WITH HER--HE HAS A LAVERN LIFT (ONLY USED IT ONCE AND IS WANTING SOME MORE TEACHING ON IT.) HE DOES NOT WANT HER GOING ANYWHERE VERY FAR FROM HOME AND NOT TO GO TO A GROUP HOME. HE STATES "I WILL BE ABLE TO CARE FOR HER AT HOME TOWARDS THE END ON NEXT WEEK."
--- NOTE | 2017-05-14 11:25 | NUR ---
DRESSING ON RIGHT CHEST/AXILLARY/BACK WAS CHANGED. LESIONS ON THE RIGHT CHEST/BREAST ARE DRY. THE AXILLARY LESIONS STILL HAVE SOME BLOODY DRAINAGE. THE LESION ON THE BACK STARTED TO DRY. PATIENT TOLERATED DRESSING CHANGE WELL. PATIENT WAS MEDICATED FOR PAIN. PATIENT WAS ASSISTED BACK TO BED WITH 2 PERS AND LAVERN LIFT. LOTION APPLIED TO LOWER EXTREMITIES. FRESH ICE WATER PROVIDED. CALL LIGHT AND PERSONAL BELONGING WITHIN REACH.
--- NOTE | 2017-05-14 14:25 | NUR ---
PT RESTING IN BED-ALERT, ORIENTED AND SUPPORTED BY HER AZAM. BOTH HAVE REALLY STRUGGLED WITH THIS SHINGLES INFECTION. IT HAS COMPLETELY CHANGED THEIR WINTER PLANS. PAT HOPES THE BACK OUTBREAK CAN CLEAR UP SOON. STILL WERE ABLE TO GET A FEW SMILES AND LAUGHS. OFFERED A PRAYER FOR BOTH. THEY THANKED ME. WILL CONTINUE TO FOLLOW NEEDED
--- NOTE | 2017-05-14 16:30 | NUR ---
PATIENT RESTING IN BED. REPORTS MINIMAL PAIN AT THIS TIME. PATIENT ATE LUNCH THAT HER BROUGHT FOR HER. DENIES NAUSEA AT THIS TIME.
--- NOTE | 2017-05-14 18:45 | NUR ---
PATIENT HAD AN UNEVENTFUL DAY. PAIN CONTROL WITH PO MORPHINE. PICC LINE PATENT AND GOOD BLOOD RETURN. DRESSING WAS CHANGED TODAY, AND LESIONS ON THE RIGHT BREAST /AXILLARY AND BACK STARTED TO DRY. PATIENT WAS UP VIA LAVERN TO CHAIR. BROUGHT PATIENT LUNCH AND DINNER. CARE COMFERENCE WAS DONE TODAY
--- NOTE | 2017-05-14 19:00 | NUR ---
HANDOFF REPORT RECEIVED FROM ETELVINA RAMOS OUTSIDE OF ROOM. TALKED TO PT AT DOORWAY, PT AWAKE SITTING UP IN BED, AT BEDSIDE. PT HAS CALL LIGHT ON LAP, PT HAS NO REQUESTS AT THIS TIME, WILL CONTINUE TO MONITIOR.
--- NOTE | 2017-05-14 22:00 | NUR ---
PT ASSESSMENT COMPLETE, SHINGLES ON CHEST DRY AND COVERED WITH NON ADHERENT PADDING, SHINGLES ON BACK SCANT DRAINAGE, COVERED WITH NON ADHERANT DRESSING, DRESSING INTACT. PTS LUNGS SOUND CLEAR THROUGHOUT, BREATHING NON-LABORED. BOWEL TONES ACTIVE X 4. SORAYA AREA RED, DESITIN APPLIED. EMPTIED SARMIENTO 150 ML URINE, SUPRAPUBIC CATHETER CLEAN, DRY, INTACT. PT RATES PAIN 8/10 IN BACK AT LESIONS, ADMINISTERED SCHEDULED MORPHINE SULFATE. ASSISTED PT TO BRUSH TEETH, REPOSITION IN BED, IVF INFUSING PICC LINE WNL, GOOD BLOOD RETURN, LINE FLUSHES WELL. PT GIVEN CALL LIGHT, FRESH ICE WATER. NO ADDITIONAL REQUESTS AT THIS TIME.
--- NOTE | 2017-05-14 22:45 | NUR ---
ANSWERED PT'S CALL LIGHT TO TURN OFF LIGHTS, PT HAS NO ADDITIONAL REQUESTS AT THIS TIME, SITTING UP IN BED, IVF INFUSING.
--- NOTE | 2017-05-14 23:28 | NUR ---
ANSWERED PT CALL LIGHT, IV PUMP BEEPING, IVF INFUSIION COMPLETE, PICC LINE HEP LOCKED. PT HAS NO REQUESTS AT THIS TIME, ENCOURAGED PT TO DRINK ICE WATER, TV ON, LIGHTS OFF. CALL LIGHT IN REACH.
--- NOTE | 2017-05-15 02:08 | NUR ---
CHECKED ON PT, PT SLEEPING AT THIS TIME, BREATHING UN-LABORED, MOUTH OPEN, EQUAL CHEST RISE BILATERALLY, LIGHTS OFF IN ROOM.
--- NOTE | 2017-05-15 04:00 | NUR ---
PT SLEEPING AT THIS TIME, BREATHING NON-LABORED, VISIBLE FROM DOORWAY, LIGHTS OFF IN ROOM.
--- NOTE | 2017-05-15 04:55 | NUR ---
PT COMPLAINED OF PAIN AT BEGINNING OF SHIFT, RECEIVED SCHEDULED MS CONTIN. PT SLEPT THROUGHOUT MOST OF SHIFT, USED CALL LIGHT APPROPRIATELY AT BEGINNING OF SHIFT. PICC LINE FLUSHES WELL, HAS GOOD BLOOD RETURN, HEPARIN LOCKED. DRESSING CLEAN DRY INTACT ON BACK AND RIGHT BREAST COVERING LESIONS.
--- NOTE | 2017-05-15 06:23 | NUR ---
IN PT ROOM FOR ACYCLOVIR ADMINISTRATION, ADMINISTERED PRN MORPHINE SULFATE PO FOR 8/10 PAIN IN BACK WITH LESIONS. PT ALSO REPORTING "UPSET STOMACH" ADMINISTERED PRN ZOFRAN IV. EMPTIED PT'S SARMIENTO 750 ML CLEAR, YELLOW URINE. VITAL SIGNS WNL. PICC LINE INFUSING ACYCLOVIR AT THIS TIME, WNL, BLOOD RETURN, FLUSHES WELL. PT BROUGHT ICE WATER PER REQUEST. NO ADDITIONAL REQUESTS AT THIS TIME, CALL LIGHT IN REACH.
--- NOTE | 2017-05-15 07:15 | NUR ---
BEDSIDE HANDOFF REPORT RECEIVED FROM WASH PLANT OPERATOR RN. PT RESTING IN BED. PT DENIES NEEDS AT THIS TIME.
--- NOTE | 2017-05-15 08:31 | NUR ---
PT WITH EMESIS IMMEDIATELY AFTER MORNING MEDICATIONS. IV ZOFRAN UNAVAILABLE. PT FEELS BETTER AFTER VOMITING. 30 MG OF ER MORPHINE SEEN IN EMESIS BAG, PT WANTING TO WAIT AND SEE IF SHE NEEDS MORE PAIN MEDICATION. PT DENIES OTHER NEEDS AT THIS TIME.
--- NOTE | 2017-05-15 10:18 | NUR ---
NURSE TIMOTHY TOOK VITALS ALREADY AND PT IS STILL WORKING ON HER BREAKFAST. PT IS SITTING UP IN BED WITH CALL LIGHT IN REACH.
--- NOTE | 2017-05-15 11:48 | NUR ---
PT WITH EMESIS, REQUESTING ANTINAUSEA MEDICATION, GIVEN 4MG IV ZOFRAN. PT REQUESTING PAIN MEDICATION GIVEN 15 MG MORPHINE PO. PT WITH EMESIS AFTER TAKING MORPHINE, EMESIS INSPECTED, NO PILL FOUND. PT PROVIDED WASH CLOTH, ORAL CARE. MD NOTIFIED OF PT CONDITION, ORDED TO EDUCATE PT ON BOWEL HYGEINE OFFER SUPPOSITORY OR ENEMA.
--- NOTE | 2017-05-15 13:14 | NUR ---
FLEET ENEMA COMPLETED PER ORDER, PT TOLERATED WELL. PT INSTRUCTED TO CALL WITH URGE TO HAVE BM, CALL LIGHT WITHIN REACH. PT CONTINUES TO FEEL NAUSEATED. PT DENIES OTHER NEEDS AT THIS TIME.
--- NOTE | 2017-05-15 16:01 | NUR ---
PICC LINE DRESSING COMPLETED, PT TOLERATED WELL, 1MM EXPOSED, YELLOE/GREEN BRUISING AT INSERTION SITE, NO REDNESS OR DRAINAGE NOTED, NEXT DRESSING CHANGE DUE BY 05/22/17. DRESSING CHANGE TO RIGHT FLANCK AND BREAST COMPETED. CLEANSED WITH SOAP, NONADHERANT DRESSING AND ABD PADS PLACED TO OPEN SORES, SECURED WITH PAPER TAPE AND MESH. PT SITTING IN CHAIR. PT HAS NOT HAD BOWEL MOVEMENT SINCE FLEET ENEMA. PT DENIES OTHER NEEDS AT THIS TIME.
--- NOTE | 2017-05-15 18:00 | NUR ---
SOAP SUDS ENEMA COMPLETED WITH PT, 600 ML OF ENEMA INSERTED, INITAIL 50 ML OF BROWN WATER OUT. PT INSTRUCTED TO CALL FOR BED JORDAN OR BSC WHEN NEEDED. PT RESTING IN BED.
--- NOTE | 2017-05-15 18:28 | NUR ---
DRESSING CHANGE COMPLETED TODAY. PICC LINE DRESSING COMPLETED TODAY. PT ON ROOM AIR. LAVERN LIFT TO CHAIR. PT NAUSEATED THROUGHOUT SHIFT, IV ZOFRAN GIVEN THROUGHOUT SHIFT, EMESIS. PT WITH SUPRAPUBIC CATH, QS. PT WITHOUT BOWEL MOVEMENT, FLEET ENEMA AND SOAP SUDS ENEMA GIVEN. PT RECEIVING PO MORPHINE FOR PAIN.
--- NOTE | 2017-05-15 19:25 | NUR ---
RECEIVED REPORT FROM RN. PATIENT IS RESTING COMFORTABLY. CALL LIGHT WITHIN REACH.
--- NOTE | 2017-05-15 22:18 | NUR ---
PATIENT RESTING COMFORTABLY IN BED, BREATHING IS EVEN AND UNLABORED. REPORTS 6/10 PAIN AT SITE OF SHINGLES SORES. SCHEDULED MORPHINE GIVEN PER EMAR. PATIENT DENIES FURTHER NEEDS AT THIS TIME. PATIENT STATES SHE IS NOT FEELING NAUSEOUS AT THIS TIME. CALL LIGHT WITHIN REACH.
--- NOTE | 2017-05-16 00:08 | NUR ---
PATIENT RESTING COMFORTABLY IN BED, BREATHING IS EVEN AND UNLABORED. REPORTS PAIN IS 1/10 IN SHINGLES LESIONS. DENIES NEEDS AT THIS TIME. CALL LIGHT WITHIN REACH.
--- NOTE | 2017-05-16 02:39 | NUR ---
PATIENT RESTING COMFORTABLY IN BED, BREATHING IS EVEN AND UNLABORED. FLACC SCORE OF 0. CALL LIGHT WITHIN REACH.
--- NOTE | 2017-05-16 03:52 | NUR ---
PATIENT RESTING COMFORTABLY IN BED, BREATHING IS EVEN AND UNLABORED. FLACC SCORE OF 0. CALL LIGHT WITHIN REACH.
--- NOTE | 2017-05-16 05:16 | NUR ---
PATIENT RESTING COMFORTABLY IN BED, BREATHING IS EVEN AND UNLABORED. FLACC SCORE IS 0. CALL LIGHT WITHIN REACH.
--- NOTE | 2017-05-16 05:21 | NUR ---
PATIENT'S NIGHT WAS UNEVENTFUL. SHE HAS BEEN RESTING COMFORTABLY IN BED THROUGHOUT SHIFT. VSS, PAIN HAS BEEN WELL CONTROLLED WITH SCHEDULED MORPHINE X1. REQUIRES 2PA/LAVERN TRANSFER TO COMODE/CHAIR. PICC TO RIGHT ARM IS HEPARIN LOCKED. NO ACUTE CHANGES FROM BEGINNING OF SHIFT ASSESSMENT.
--- NOTE | 2017-05-16 06:50 | NUR ---
PATIENT REPORT 5/ 10 PAIN IN BACK IN SHINGLES LESIONS. PRN MORPHINE GIVEN PER EMAR. DENIES FURTHER NEEDS AT THIS TIME. CALL LIGHT WITHIN REACH.
--- NOTE | 2017-05-16 08:57 | NUR ---
WENT IN WITH RN GOT THE VITALS DONE CHANGED LINENS. GOT WARM BLANKET SOME APPLESAUCE AND CRANBERRY JUICE. HOYERED TO THE CHAIR.
--- NOTE | 2017-05-16 08:58 | NUR ---
PT ASSISTED FROM BED TO RECLINER USING LAVERN LIFT, WITH 2 PERSON ASSIST. PT ASSISTED WITH AM CARES BY SHANTANU SPARROW. ENCOURAGED PT TO ORDER BREAKFAST. PT REFUSED ANYTHING BUT CRANBERRY JUICE AND APPLE SAUCE. ENCOURAGED PT TO DRINK MEAL SUPPLEMENT DRINK IF SHE WOULD ONLY EAT APPLE SAUCE. PT REFUSED. PROVIDED WITH WARM BLANKET. PT DENIED OTHER NEEDS.
--- NOTE | 2017-05-16 10:20 | NUR ---
PT SITTING UP IN RECLINER. DENIED NEEDS. SMILING, CHEERFUL.
--- NOTE | 2017-05-16 12:43 | NUR ---
HELPING PHYSICAL THERAPY WITH EXERCICES. RIGHT NOW SITTING UP IN CHAIR.
--- NOTE | 2017-05-16 12:55 | NUR ---
PT WORKING WITH PHYSICAL THERAPY, WITH ASSISTANCE FROM SHANTANU SPARROW. C/O 10/10 ABDOMINAL PAIN, TO SKIN LESION SITES. GAVE MORPHINE 15 MG PO PRN. PT ALSO C/O NAUSEA. GAVE ZOFRAN 4 MG IV PRN.
--- NOTE | 2017-05-16 16:05 | NUR ---
SPOKE WITH DR. ZUNIGA REGARDING PT'S DRESSING CHANGE ORDERS TO SHINGLES WOUNDS, ETELVINA AGUIRRE, WHO WAS PT'S RN YESTERDAY, REPORTED THAT SHE PLACED ADAPTIC, ABD PAD TO PT'S WOUNDS, PT'S WOUNDS STUCK TO NON ADHERANT DRESSINGS, AND TORE OFF SCABBED AREAS, OPENING WOUNDS. DR. ZUNIGA STATED THAT IT WOULD BE OK TO USE ADAPTIC DRESSIGN TO WOUND.
--- NOTE | 2017-05-16 16:56 | NUR ---
DRESSING CHANGE COMPLETED TO RIGHT BACK TO BREAST SHINGLES. OLD DRESSING REMOVED, ADAPTIC EASILY REMOVED, WASHED WITH ANTIBACTERIAL SOAP, SMALL AMOUNT OF BLEEDING FROM RIGHT LATERAL BREAST. BACK AND FLANK WITH RED DERMAL TISSUE, SCATTERED WHITE TISSUE, CLEAR EXUDATE. CLEAN ADAPTIC, ABD PADS, SECURED WITH SMALL AMOUNT OF TAPE AND MESH TUBE. VANICREAM APPLIED TO LOWER LEGS. PT GIVEN SCHEDULED MS CONTIN AND SENNA. PT DENIES OTHER NEEDS AT THIS TIME.
--- NOTE | 2017-05-16 18:26 | NUR ---
PT SITTING UP IN RECLINER. SMILING, CHEERFUL. DENIED NEEDS, PERSONAL SUPPLIES IN REACH, CALL BUTTON IN REACH.
--- NOTE | 2017-05-16 19:20 | NUR ---
RECEIVED REPORT FROM RN. PATIENT RESTING COMFORTABLY IN CHAIR. TRANSFERED TO BED WITH 2PA/LAVERN TRANSFER. PATIENT DENIES NAUSEA AT THIS TIME AND STATES "PAIN IS TOLERABLE." NO OTHER NEEDS AT THIS TIME.
--- NOTE | 2017-05-16 19:37 | NUR ---
PT STATED THAT SHE CAN NOT STAND LACTULOSE, AND THAT IT MAKES HER THROW UP WHEN SHE ATTEMPTS TO TAKE IT. STATED THAT SHE WILL REFUSE THIS MECIATION. NOTIFIED DR. ZUNIGA VIA TELEPHONE, RECIEVED TORB: D/C LACTULOSE, START MIRILAX 2 PACKETS PO BID.
--- NOTE | 2017-05-16 20:04 | NUR ---
PATIENT DID ORAL CARE, WASH FACE AND HANDS.
--- NOTE | 2017-05-16 20:05 | NUR ---
ICE WATER REFILLED. CALL LIGHT WITHIN REACH.
--- NOTE | 2017-05-16 21:20 | NUR ---
PATIENT IS RESTING IN BED, BREATHING IS EVEN AND UNLABORED. REPORTS 6/10 PAIN IN SHINGLES LESIONS ON BACK AND SHOULDER. SCHEDULED MORPHINE GIVEN PER EMAR. PRN ZOFRAN GIVNE DUE TO NAUSEA. PATIENT HAS NO OTHER NEEDS AT THIS TIME. ASSESSMENT DONE. CALL LIGHT WITHIN REACH.
--- NOTE | 2017-05-17 00:27 | NUR ---
PATIENT IS RESTING COMFORTABLY IN BED, BREATHING IS EVEN AND UNLABORED. FLACC SCORE OF 0. CALL LIGHT WITHIN REACH.
--- NOTE | 2017-05-17 03:01 | NUR ---
PATIENT RESTING COMFORTABLY IN BED, BREATHING IS EVEN AND UNLABORED. FLACC SCORE OF 0. CALL LIGHT WITHIN REACH.
--- NOTE | 2017-05-17 05:22 | NUR ---
PATIENT'S NIGHT WAS UNEVENTFUL. SHE HAS BEEN RESTING COMFORTABLY IN BED THROUGHOUT SHIFT. VSS, PAIN HAS BEEN WELL CONTROLLED WITH SCHEDULED MORPHINE. 2PA/LAVERN TRANSFER, PICC IS HEPARIN LOCKED, ROOM AIR. NO ACUTE CHANGES FROM BEGINNING OF SHIFT ASSESSMENT.
--- NOTE | 2017-05-17 05:27 | NUR ---
PATIENT IS RESTING COMFORTABLY IN BED, BREATHING IS EVEN AND UNLABORED. PATIENT REPORTS 0/10, NO NAUSEA. DENIES NEEDS AT THIS TIME. CALL LIGHT WITHIN REACH.
--- NOTE | 2017-05-17 07:15 | NUR ---
RECIEVED BEDSIDE REPORT FROM ETELVINA MONTALVO. PT RECIEVED IV ZOFRAN PRN FROM [facility] FOR C/O NAUSEA. PT DENIED ANY EMESIS. PT REPORTED THAT SHE HAD RECENTLY RECIEVED PRN PAIN MEDICATION FOR PAIN TO SHINGLES LESIONS. DENIED OTHER NEEDS AT THIS TIME. UNABLE TO GET BLOOD RETURN FROM MIDLINE TO RUE, BUT PT REPORTS SHE TASTES AND SMELLS SALINE FLUSH. ETELVINA DONATO WHO PLACED THIS LINE NOTIFIED.
--- NOTE | 2017-05-17 08:16 | NUR ---
PT AWAKE IN BED. ADALBERTO HYMAN AM CARE.
--- NOTE | 2017-05-17 09:56 | NUR ---
PT NAUSEATED. REPORTED THAT SHE DID NOT EAT BREAKFAST DUE TO NAUSEA. IN BED, HOB ELEVATED. DENIED NEED TO USE BEDSIDE COMMODE. BED POSITIONING IS ON.
--- NOTE | 2017-05-17 10:52 | NUR ---
PT IN BED, AWAKE, ALERT. DENIES FURTHER NAUSEA. REPORTS PAIN IS NOW WELL CONTROLLED. DENIES NEED TO USE BEDSIDE COMMODE. BED POSITIONING ON. PERSONAL SUPPLIES AND CALL LIGHT IN REACH.
--- NOTE | 2017-05-17 11:30 | NUR ---
TALKED WITH PT AZAM REGARDING PT IMPENDING DC AND WE DISCUSSED THAT HE DOES INDEED HAVE A LAVERN LIFT THAT IS ELECTRIC THAT HE BOUGHT FROM [facility]. WE ALSO TALKED ABOUT HOW PT IS GOING TO BE GETTING HOME AND HE MENTIONED SOMETHING ABOUT WC VAN AND THEN AFTER DISCUSSION HE SAID HE WOULD LIKE TO VISIT THE POSS OF HER BEING TRANSPORTED BY AMBULANCE TO HOME A SAFER ALTERNATIVE FOR HER AT THIS POINT. WE ALSO DISCUSS THAT DISCHARGE WOULD PROBABLY LATER THIS WEEK.
--- NOTE | 2017-05-17 12:43 | NUR ---
PT STATED SHE DID NOT WANT ANYTHING FOR LUNCH. PICKE UP ROOM.
--- NOTE | 2017-05-17 12:53 | NUR ---
PT IN BED. C/O NAUSEA FOLLOWING EATING GRAPES AND CRACKERS. GAVE ZOFRAN 4 MG IV PRN. PT AGREED TO TRY TO HAVE A BM ON BEDSIDE COMMODE. WILL TRANSFER PT TO BEDSIDE COMMODE WITH LAVERN.
--- NOTE | 2017-05-17 13:21 | NUR ---
PT C/O 5/10 PAIN TO BACK, AT AREA OF SHINGLES LEGIONS. GAVE MORPHINE 15 MG PO PRN. PT REMAINS UP ON BEDSIDE COMMODE, REPORTS THAT SHE HAS PASSED SOME STOOL THUS FAR. ENCOURAGED PT TO ATTEMPT TO GO MORE. PT AGREED.
--- NOTE | 2017-05-17 13:46 | NUR ---
PT HAD LARGE SMEAR ON BED. WAS UP ON BEDSIDE COMMODE, AND REPORTED THAT SHE FELT LIKE SHE HAD A BM. ON TRANSFERING PT BACK TO BED, NOTED NO BM. BOWEL TONES ACTIVE X 4 QUADRANTS.
--- NOTE | 2017-05-17 14:11 | NUR ---
PT IN BED, ALERT AND ORIENTED. HER HAS STEPPED AWAY FOR A MOMENT. SHE IS HANDLING THINGS FAIRLY WELL. ONE SPOT STILL IS VERY PAINFUL. GOOD CONVERSATION-SHE CN'T WAIT TO GET HER HAIR DONE! EXTENDED A BLESSING JUST P.T. CAME IN. WILL CONTINUE TO FOLLOW
--- NOTE | 2017-05-17 15:14 | NUR ---
PT HAD SHOWER. DRESSINGS TO CHEST, RIGHT AXILLA AREA, AND BACK CHANGED, NEW ADAPTIC, AND ABD PADS APPLIED. AREAS HAVE WHAT APPEARS TO BE GRANULATION TISSUE, WITH MODERATE AREA OF CREAM/WHITE COLORED AREA TO RIGHT AXILLA WOUND AREA.
--- NOTE | 2017-05-17 15:16 | NUR ---
DR. ZUNIGA IN TO SEE PT. ASSESSING PT AT THIS TIME.
--- NOTE | 2017-05-17 16:56 | NUR ---
PUT PT ON COMOD
--- NOTE | 2017-05-17 17:01 | NUR ---
PUT PT IN BED JORDAN.
--- NOTE | 2017-05-17 17:08 | NUR ---
PT C/O 10/14 ABDOMINAL PAIN, STATED THAT SHE IS HAVING "GAS PAIN", DESCRIBES PAIN SHARP, CRAMPING PAIN. PT SITTING UP IN RECLINER, HAS PERSONAL SUPPLIES AND CALL BUTTON AT SIDE.
--- NOTE | 2017-05-17 19:25 | NUR ---
PATIENT RESTING COMFORTABLY IN CHAIR, BREATHING IS EVEN AND UNLABORED. PATIENT STATES THAT PAIN IS 2/10 AND HAS NO NAUSEA. DENIES NEED FOR PAIN MEDICATION. NO NEEDS AT THIS TIME. CALL LIGHT WITHIN REACH.
--- NOTE | 2017-05-17 22:19 | NUR ---
PATIENT IS RESTING COMFORTABLY IN CHAIR, BREATHING IS EVEN AND UNLABORED. REPORTS 4/10 PAIN IN SHINGLES LESIONS, PRN MORPHINE GIVEN PER EMAR. TRANSFERED PATIENT TO BED 2PA/LAVERN TRANSFER. MEDIUM STOOL NOTED, PATIENT WAS CLEANED, CHUCKS IN PLACE. PATIENT DENIES NAUSEA AT THIS TIME. NO NEEDS AT THIS TIME. CALL LIGHT WITHIN REACH.
--- NOTE | 2017-05-17 23:07 | NUR ---
2 PERSON ASSISTED PATIENT PUT TO BED WITH LAVERN LIFT. PATIENT HAD A MEDIUM SOFT BOWEL MOVEMENT.
--- NOTE | 2017-05-18 00:23 | NUR ---
PATIENT RESTING COMFORTABLY IN BED, BREATHING IS EVEN AND UNLABORED. FLACC SCORE OF 0. CALL LIGHT WITHIN REACH.
--- NOTE | 2017-05-18 02:18 | NUR ---
PATIENT IS RESTING COMFORTABLY IN BED, BREATHING IS EVEN AND UNLABORED. FLACC SCORE OF 0. CALL LIGHT WITHIN REACH.
--- NOTE | 2017-05-18 04:10 | NUR ---
PATIENT RESTING COMFORTABLY IN BED, BREATHING IS EVEN AND UNLABORED. FLACC SCORE OF 0. CALL LIGHT WITHIN REACH.
--- NOTE | 2017-05-18 05:19 | NUR ---
PATIENT'S NIGHT WAS UNEVENTFUL. SHE HAS BEEN RESTING COMFORTABLY THROUGHOUT SHIFT, VSS, PAIN HAS BEEN WELL CONTROLLED WITH ORDERED PO MORPHINE. PATIENT HAD MEDIUM BM LAST NIGHT, URINE OUTPUT QS. PICC TO RIGHT ARM IS HEPLOCKED, CLAVE CHANGED LAST NIGHT AND NOW HAS BLOOD RETURN. SHE IS A 2PA/LAVERN TRANSFER TO CHAIR. NO ACUTE CHANGES FROM BEGINNING OF SHIFT ASSESSMENT.
--- NOTE | 2017-05-18 06:21 | NUR ---
NURSE NOTIFIED RE OUTPUT.
--- NOTE | 2017-05-18 06:44 | NUR ---
PATIENT RESTING COMFORTABLY IN BED, BREATHING IS EVEN AND UNLABORED. REPORTS 2/10 PAIN IN SHINGLES LESIONS ON BACK, NO NAUSEA AT THIS TIME. DENIES NEEDS. CALL LIGHT WITHIN REACH.
--- NOTE | 2017-05-18 07:42 | NUR ---
PT AWAKE ALTHOUGH SLEEPY. PT DENIES CONCERNS. HAD ACTUAL BM LAST NIGHT!
--- NOTE | 2017-05-18 08:26 | NUR ---
PT IN BED. SET UP FOR BRK. WET WASH CLOTH. OPEN CURTINS.
--- NOTE | 2017-05-18 08:49 | NUR ---
PT RATING PAIN 4\10 IN BACK. ON THE PHONE WITH BROTHER. APPEARS MUCH MORE COMFORTABLE THAN PREVIOUS WEEK. PT HAS BREAKFAST TRAY. SARMIENTO DRAINING TO GRAVITY. DENIES CONCERNS.
--- NOTE | 2017-05-18 12:17 | NUR ---
PT CALLED TO ASK FOR PRN PAIN MED. UPON ENTERING ROOM PT WAS EXTREMELY NAUSEOUS. ADMINISTERED ZOFRAN. PT WAS ABLE TO THEN SWALLOW HER PAIN MEDICATION.
--- NOTE | 2017-05-18 14:18 | NUR ---
PT RESTING IN BED, BIG SMILE AND VERY PLEASANT. SEEMS TO BE KEEPING GOOD AN ATTITUDE POSSIBLE. HAS STEPPED OUT FOR A MOMENT. GAVE PT A PRAYER SHAWL, SHE SEEMED VERY PLEASED. HAD PRAYER WITH HER, WILL FOLLOW NEEDED
--- NOTE | 2017-05-18 15:38 | NUR ---
PT IS AWAKE IN BED. DOING WELL.
--- NOTE | 2017-05-18 16:14 | NUR ---
ASSISTED VICE PRESIDENT OF CUSTOMER SERVICE. STACEY AND IN TRYING TO STAND PT AT BEDSIDE WITH WALKER. PT WAS ABLE TO LOCK HER KNEES BUT UNABLE TO STRAIGHTEN UP. HOYERED PT TO CHAIR WITH STACEY. PT TOLERATED WELL. NOW DOING VICE PRESIDENT OF CUSTOMER SERVICE. BARELY ABLE TO LIFT LEG. WENT HOME FOR A FEW HOURS. WILL BE BACK WITH PT DINNER AT 1800
--- NOTE | 2017-05-18 17:54 | NUR ---
CHANGED PT DRESSING. MUCH IMPROVED FROM LAST WEEK. PT TOLERATED WELL. SHANTANU GASPAR ASSISTED. PT REMAINS UP IN CHAIR, WILL BRING IN DINNER SHORTLY.
--- NOTE | 2017-05-18 18:35 | NUR ---
PT DRESSING CHANGED, HEALING WELL. PAIN MEDICATION SCHED. WITH ONE PRN DOSE GIVEN. BROUGHT FOOD IN. APPETITE MINIMAL. UO QS.
--- NOTE | 2017-05-18 21:46 | NUR ---
ENTERED ROOM WITH ALL PPE FOR AIRBORNE PRECAUTIONS. HOYERED PT FROM CHAIR TO BED. PT RATES PAIN AT 5/10, SCHEDULED MS CONTIN GIVEN. DENIES NAUSEA. PT ALERT AND ORIENTED X4. PLEASENT DEMEANOR. IV IN RIGHT UPPER ARM, FLUSHED WELL AND HAD BLOOD RETURN. PT HAS FRESH ICE WATER AT BEDSIDE. CALL LIGHT IN REACH. PT HAS NO FURTHER NEEDS.
--- NOTE | 2017-05-18 21:56 | NUR ---
PATIENT BRUSHED HER TEETH.
--- NOTE | 2017-05-18 22:00 | NUR ---
RN KASIE AND Ute ASSISTED PATIENT PUT TO BED USING LAVERN LIFT. NURSE WAS IN THE ROOM.
--- NOTE | 2017-05-18 23:17 | NUR ---
PT ON BEDPAN FOR BM. PT HAD SMALL SOFT BM. COMPLAINED OF NAUSEA, GAVE ZOFRAN IV. PT REFUSED ZOFRAN SL, STATES "THAT STUFF WILL MAKE ME THROW UP." PT REPORTED "FEELING BETTER," AFTER BM AND GETTING HER OFF THE BEDPAN. CALL LIGHT IN REACH. NO FURHTER NEEDS.
--- NOTE | 2017-05-18 23:43 | NUR ---
PATIENT CALLED WANTED TO USE THE BED JORDAN. PATIENT HAD A SMEAR/SMALL SOFT BM.
--- NOTE | 2017-05-19 00:27 | NUR ---
PT APPEARS TO BE SLEEPING. LIGHTS AND TV OFF IN ROOM.
--- NOTE | 2017-05-19 01:14 | NUR ---
PT APPEARS ASLEEP. LIGHTS AND TV OFF IN ROOM.
--- NOTE | 2017-05-19 04:55 | NUR ---
PT SLEPT MAJORITY OF SHIFT. SM BM LAST NIGHT. ALERT AND ORIENTED X4. LAVERN. SCHEDULED AND PRN PAIN MEDICATIONS. AIRBORNE PRECAUTIONS. DRESSING CHANGE DAILY AND PRN. PT USES CALL LIGHT APPROPRIATLY. PLEASENT DEMEANOR.
--- NOTE | 2017-05-19 07:31 | NUR ---
REPORT RECIEVED FROM ETELVINA FERRO. PT HAD ANOTHER BM LAST NIGHT.
--- NOTE | 2017-05-19 09:15 | NUR ---
RN X 2 INTO ASSIST PATIENT TO CHAIR WITH LAVERN SWING.
--- NOTE | 2017-05-19 09:33 | NUR ---
TRANSFERED TO CHAIR WITH LAVERN AND CHARGE GINETTE. PT TOLERATED WELL. ADMINSITERED MEDS, RATES PAIN 5\10. DRESSING INTACT. PT DENIES MUCH NAUSEA AND IS EATING BREAKFAST. TALKED ABOUT GOING HOME. PT STATES SHE IS LOOKING FORWARD TO IT, BUT MAYBE HER ISNT READY.
--- NOTE | 2017-05-19 11:02 | NUR ---
PT CALLED FOR PAIN MEDICATION. HAS LET PAIN GET UP TO HIGH AND NOW SHE IS NAUSEOUS. ADMINISTERED PO ZOFRAN. APPEARS TO BE HELPING. ADMINSTERED PRN PAIN MEDICATION.
--- NOTE | 2017-05-19 11:32 | NUR ---
ANSWERED MULTIPLE QUESTIONS FROM REGARDING CARE UPON DISCHARGE. IS ANXIOUS ABOUT TAKING CARE OF HER AT HOME. REASSURED HIM THAT SHE IS DOING MUCH BETTER AND THIS RN WILL SHOW HIM AGAIN HOW TO CHANGE THE DRESSING AND USE THE LAVERN.
--- NOTE | 2017-05-19 12:26 | NUR ---
PER REQUEST OF PT I CALLED [facility] AND TALKED WITH JULEE. ABOUT PT AND SHE SAID THEY WOULD TAKE A LOOK AT THE CHART NOTES AND CALL ME BACK. FAXED FACESHEET, H AND P, PROG NOTE, IMAGING, LABS, AND PT AND OT EVALS AND NOTES
[2017-05-19] MEDS ORDERED: ONDANSETRON ODT4 MG SL (14:16)
[2017-05-19] MEDS ORDERED: GABAPENTIN300 MG PO (14:16)
[2017-05-19] MEDS ORDERED: DESITIN57 GM TOP (14:16)
[2017-05-19] MEDS ORDERED: MORPHINE SULFAT15 MG PO (14:16)
[2017-05-19] MEDS ORDERED: BISACODYL5 MG PO (14:16)
[2017-05-19] MEDS ORDERED: MIRALAX17 GM PO (14:16)
--- NOTE | 2017-05-19 14:51 | NUR ---
ADMINISTERED GABAPENTIN. WENT OVER SIDE EFFECTS OF MEDICATION. PT DENIES CONCERNS.
--- NOTE | 2017-05-19 18:33 | NUR ---
PATIENT UP TO BSC WITH 2 PERSON ASSIST LAVERN OSHEA
--- NOTE | 2017-05-19 20:00 | NUR ---
patient in chair on phone doing well. refilled ice water. whiteboard updated, room tidied.
--- NOTE | 2017-05-19 21:41 | NUR ---
PT SITTING UP IN CHAIR WHEN ENTERING ROOM. BP TAKEN BY SHANTANU INACURATE, PT WAS ON THE PHONE WITH HER ARM BENT WHEN TAKEN. RN RE-TOOK BP, BP WNL. PT RATES PAIN AT 6/10, GAVE MORPHINE PRN FOR PAIN. PT ALERT AND ORIENTED AND IN GOOD SPIRITS. FRESH WATER. CALL LIGHT IN REACH.
--- NOTE | 2017-05-19 23:01 | NUR ---
PT IN BED, APPEARS ASLEEP. LIGHTS AND TV OFF IN ROOM.
--- NOTE | 2017-05-20 02:06 | NUR ---
PT APPEARS TO BE SLEEPING. LIGHTS AND TV OFF IN ROOM.
--- NOTE | 2017-05-20 02:20 | NUR ---
PATIENT ASLEEP IN BED.
--- NOTE | 2017-05-20 04:15 | NUR ---
PATIENT ASLEEP IN BED. DOES NOT NEED ANYTHING AT THIS TIME.
--- NOTE | 2017-05-20 06:10 | NUR ---
pt complained of 8/10 pain in her back. she states "i cant beleive i did that right before i am going to go home merino it." pt reports that during physical therapy yesterday, she hurt her back. re-positioned pt. gave percocet for pain. pt has no further needs. tommy martínez in reach.
--- NOTE | 2017-05-20 06:37 | NUR ---
PT HAD UNEVENTFUL NIGHT. SLEPT MAJORITY OF SHIFT. MORPHINE PO GIVEN X2 FOR BACK PAIN. ALERT AND ORIENTED X4. NO NAUSEA OVER NIGHT. LAVERN. POSSIBLE DISCHARGE TO HOME TODAY.
--- NOTE | 2017-05-20 10:16 | NUR ---
PT IS RESTING IN BED SAFELY WITH CALL L;IGHT IN REACH. PT ASKED FOR MORTE ICE WATER
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
--- NOTE | 2017-05-20 11:25 | NUR ---
PATIENT'S PICC LINE DC'D IN THE RIGHT ARM TIP INTACT, TIP WAS TRIMMED TO 15CM.
--- NOTE | 2017-05-20 12:42 | NUR ---
PT TO BE DC'D TODAY. UNABLE TO VISIT WITH PT, BUT CONNECTED WITH HER AZAM. HE SEEMED SOMEWHAT EXCITED, YESTERDAY NOT SO MUCH. HE IS CONCERNED ABOUT HOW HE IS GOING TO CARE FOR HER NOW. LESS MOBILE AND PHYSICALLY WEAKER. GOD BLESS THEM BOTH
--- NOTE | 2017-05-21 17:27 | NUR ---
CALLED FOR POST DISCHARGE CHECK. SPOKE WITH PATIENTS . STATES SHE IS DOING OK. STATES SHE HURT HER BACK THE DAY OF DISCHARGE SO SHE IS A LITTLE MORE SORE. IS USING PAIN MEDICATIONS AND SEEMS TO BE COMFORTABLE WITH THAT. STATES HE HAS A "HELPER" WHO IS IS HIRING WHO CAME BY TODAY TO HELP WITH DRESSING CHANGE. STATES HE DID NOT GET EXTRA ADAPTIC SENT HOME AND ONLY HAS TWO LEFT. WE DISCUSSED THAT [facility] CAN HELP HIM WITH DRESSING MATERIALS NEEDED. HE STATES HE HASN'T HEARD FROM THEM YET. STATES HE HAS ALL THE MEDICATIONS AND PATIENT IS STILL HAVING SOME DIARRHEA. DISCUSSED SHE NEEDS TO STAY HYDRATED AND TO CALL IF THIS GETS WORSE. HE STATES ITS A LITTLE BETTER THAN WHEN THEY WENT HOME. I TOLD HIM I WOULD CHECK WITH [facility] AND CALL HIM BACK ON WHEN THEY MIGHT BE COMING. CALLED AND SPOKE WITH [facility] [employer] [facility]. THEY DID NOT RECEIVE ORDERS FOR [facility] REFERRAL. CHART OPENED AND ORDER AND CLINICALS FAXED TO HOME [facility] DEPARTMENT. SPOKE WITH DR ZUNIGA REGARDING DRESSINGS AND REFERRAL. WILL HAVE COME FOR EXTRA DRESSINGS. CALLED AND SPOKE WITH AGAIN. EXPLAINED [facility] WILL LIKELY BE THERE WEDNESDAY. EXPLAINED I HAVE LEFT AN ENVELOPE AT [employer] WITH EXTRA DRESSINGS FOR HIM. HE STATES HE WILL PICK THEM UP TOMORROW. WE WENT OVER PHONE NUMBERS TO CALL OVER WEEKEND IF HE HAS CONCERNS. AGREED I CAN CALL HIM WEDNESDAY AND CHECK IN AGAIN
--- NOTE | 2017-05-21 17:30 | NUR ---
FAX CONFIRMATION RECEIVED FOR CLINICALS/ORDER SENT TO [facility].
--- NOTE | 2017-05-24 10:00 | NUR ---
PATIENTS PAT CALLED. STATES HE IS RUNNING LOW ON DRESSINGS AGAIN. DISCUSSED I WILL TALK WITH DR ZUNIGA REGARDING THIS. HE STATES THE SKIN IS NOT WEEPY OR OPEN BUT HE THOUGHT HE HAD TO CHANGE IT EVERYDAY. WE DISCUSSED THAT [facility] HAS PATIENTS REFERRAL AND IS WORKING ON SECURING INSURANCE APPROVAL AND FINDING A DOCTOR TO COVER ORDERS. STATES PATIENT IS DOING "PRETTY GOOD". IS ABLE TO TRANSFER HER TO WHEELCHAIR. STATES HE IS LOOKING FORWARD TO PHYSICAL THERAPY COMING IN TO WORK WITH HER. STATES HER MOOD IS BETTER AT HOME. HAS NO QUESTIONS REGARDING MEDICATIONS. SPOKE WITH DR ZUNIGA REGARDING DRESSINGS. HE STATES TO TELL TO ONLY USE DRESSINGS IF ANY OF THE AREA IS OPEN, WEEPING OR DRAINING. OTHERWISE LEAVE IT TO AIR. CALLED AND DISCUSSED THIS WITH PAT. HE STATES HE WILL DO THIS.
--- NOTE | 2017-05-28 13:03 | NUR ---
TCB CALLBACK DONE, PT STATES THEY JUST GOT BACK FROM SEEING ER/DR ROCHA AND HAVING TO HAVE HER SUPER PUBLIC CATH CHANGED IT WAS PLUGGED UP. PT STATES THAT HE WOULD LIKE ME TO NOTE THAT HE HAD TO USE THE AMBULANCE OPPOSED TO WC VAN BECAUSE OF PT SHINGLES AND IT HURTS FOR HER TO SIT UP IN A WC. STATES THE SHINGLES ARE IMPROVING AND THE SHINGLES ARE CRUSTING WELL. STATED THAT BEFORE THEY CAME HERE THE HOME [facility]ALTH NURSE ATTEMPTED TO FIX THE PLUGGED CATH.
== END 2017-05-20 12:10 | disposition home or self-care (01) | DRG 866 ==
LOC: MS 13:30
PROVIDERS: ADMIT Internal Medicine
DX: B02.7 Disseminated zoster (principal); M79.2 Neuralgia and neuritis, unspecified; K59.03 Drug induced constipation; T40.2X5A Adverse effect of other opioids, initial encounter; G35 Multiple sclerosis; N31.2 Flaccid neuropathic bladder, not elsewhere classified
CPT/HCPCS: 74000; 97110; 97163; 97530; J0133; J1650; J2405; J7050

== ENCOUNTER 2017-05-28 09:46 | Emergency (ER) | payer MEDICARE, OTHER ==
[~2017-05-28] VITALS: Ht 162.6 cm; Wt 59.0 kg
[~2017-05-28 09:46] MED LIST changes: +BISACODYL5 MG PO; +DESITIN57 GM TOP; +GABAPENTIN300 MG PO; +MIRALAX17 GM PO; +MORPHINE SULFAT15 MG PO; +ONDANSETRON ODT4 MG SL
[2017-05-28] MEDS ORDERED: ULTRAM50 MG PO (10:17)
[2017-05-28] MEDS ORDERED: TOLTERODINE TART4 MG PO (10:17)
== END 2017-05-28 10:23 | disposition home or self-care (01) ==
LOC: ED 09:46
DX: T83.098A Other mechanical complication of other urinary catheter, initial encounter (principal)
CPT/HCPCS: 99283